=== PATIENT | female | born 1940 | race Caucasian/White ===

== ENCOUNTER → 2016-07-02 | Outpatient (CLI) | payer OTHER ==
[~2016-07-02] VITALS: Ht 170.2 cm; Wt 89.8 kg
[~2016-07-02] MED LIST: ASPI81TA83 PO; ATAM25TA2 PO; ATOR1TAB21 PO; BUPROPION PO; CARB1TAB16 PO; CLON0.5T PO; ELIQ5TAB PO; ERGO500014 PO; LEVO75TA2 PO; LEVO75TA4 PO; LEXA1TAB PO; LIDOCAINE 2% INJ 100 MG/5 ML SDV (FOR ANES.) As Ordered ONE; LIPI20TA PO; LISI10TA2 PO; Lisinopril/HCTZ PO; METF500T4 PO; NIZO2SHA EX; NS 1,000 ML IV ONE; OMEP40CA2 PO; PROPOFOL 200 MG/20 ML VIAL As Ordered ONE; VICO5TAB OR
--- NOTE | 2016-07-02 12:10 | ROOR ---
Patient Name: Osiris Austin Procedure Date: 07/02/2016 11:46 AM Date of : 1940 Age: 75 Room: [facility] Gender: Female Note Status: Finalized Procedure: Upper GI endoscopy + Biopsies Indications: Heartburn Providers: Collin Ch MD Referring MD: Alfa Maher MD Requesting Provider: Medicines: Monitored Anesthesia Care Complications: No immediate complications. Procedure: Pre-Anesthesia Assessment: - The heart rate, respiratory rate, oxygen saturations, blood pressure, adequacy of pulmonary ventilation, and response to care were monitored throughout the procedure. The Endoscope was introduced through the mouth, and advanced to the second part of duodenum. The upper GI endoscopy was accomplished without difficulty. The patient tolerated the procedure well. Findings: The Z-line was regular and was found 40 cm from the incisors. One non-bleeding cratered gastric ulcer was found at the incisura. Biopsies were taken with a cold forceps for histology. The exam was otherwise without abnormality. The exam of the duodenum was otherwise normal. Impression: - Z-line regular, 40 cm from the incisors. - Non-bleeding gastric ulcer. Biopsied. - The examination was otherwise normal. Recommendation: - Await pathology results. - Discharge patient to home. - Use Prilosec (omeprazole) 40 mg PO BID. - Use sucralfate tablets 1 gram PO QID. - Telephone GI clinic for pathology results in 1 week. - Check Portal Online for Path Results.([email or web address] - The findings and recommendations were discussed with the patient's family. Collin Ch MD Collin Ch MD 07/02/2016 12:09:54 PM This report has been signed electronically. Number of Addenda: 0 Note Initiated On: 07/02/2016 11:46 AM Estimated Blood Loss: Estimated blood loss: none.
--- NOTE | 2016-07-02 12:31 | ROOR ---
Patient Name: Osiris Austin Procedure Date: 07/02/2016 11:47 AM Date of : 1940 Age: 75 Room: [facility] Gender: Female Note Status: Finalized Procedure: Total Colonoscopy to Cecum + Cold Snare Polypectomy + Biopsy Polypectomy Indications: Screening in patient at increased risk: Colorectal cancer in father 60 or older Providers: Collin Ch MD Referring MD: Alfa Maher MD Requesting Provider: Medicines: Monitored Anesthesia Care Complications: No immediate complications. Procedure: Pre-Anesthesia Assessment: - The heart rate, respiratory rate, oxygen saturations, blood pressure, adequacy of pulmonary ventilation, and response to care were monitored throughout the procedure. The Colonoscope was introduced through the anus and advanced to the cecum, identified by appendiceal orifice and ileocecal valve. The colonoscopy was performed without difficulty. The patient tolerated the procedure well. The quality of the bowel preparation was excellent. Findings: The perianal and digital rectal examinations were normal. Non-bleeding internal hemorrhoids were found during retroflexion. The hemorrhoids were small and Grade I (internal hemorrhoids that do not prolapse). Scattered small-mouthed diverticula were found in the recto-sigmoid colon, sigmoid colon and descending colon. A small polyp was found in the mid ascending colon. The polyp was sessile. The polyp was removed with a jumbo cold forceps. Resection and retrieval were complete. A small polyp was found in the mid ascending colon. The polyp was sessile. The polyp was removed with a cold snare. Resection was complete, but the polyp tissue was not retrieved. The exam was otherwise without abnormality on direct and retroflexion views. Impression: - Non-bleeding internal hemorrhoids. - Diverticulosis in the recto-sigmoid colon, in the sigmoid colon and in the descending colon. - One small polyp in the mid ascending colon, removed with a jumbo cold forceps. Resected and retrieved. - One small polyp in the mid ascending colon, removed with a cold snare. Complete resection. Polyp tissue not retrieved. - The examination was otherwise normal on direct and retroflexion views. - The exam was otherwise normal to the cecum. Recommendation: - Patient has a contact number available for emergencies. The signs and symptoms of potential delayed complications were discussed with the patient. Return to normal activities tomorrow. Written discharge instructions were provided to the patient. - High fiber diet. - Discharge patient to home. - Await pathology results. - Telephone GI clinic for pathology results in 1 week. - Check Portal Online for Path Results.([email or web address]) - The findings and recommendations were discussed with the patient's family. Collin Ch MD Collin Ch MD 07/02/2016 12:31:18 PM This report has been signed electronically. Number of Addenda: 0 Note Initiated On: 07/02/2016 11:47 AM Estimated Blood Loss: Estimated blood loss: none.
[2016-07-02 12:50] VITALS: BP 153/72
== END | disposition home or self-care (01) ==
LOC: M OPP 11:16
PROVIDERS: ATTEND Internal Medicine Gastroenterology
DX: Z12.11 Encounter for screening for malignant neoplasm of colon (principal); D12.2 Benign neoplasm of ascending colon; K64.0 First degree hemorrhoids; K57.30 Diverticulosis of large intestine without perforation or abscess without bleeding; R12 Heartburn; K25.9 Gastric ulcer, unspecified as acute or chronic, without hemorrhage or perforation; I48.91 Unspecified atrial fibrillation; R07.89 Other chest pain; I10 Essential (primary) hypertension; E78.5 Hyperlipidemia, unspecified; R01.1 Cardiac murmur, unspecified; R00.2 Palpitations; I20.9 Angina pectoris, unspecified; E11.9 Type 2 diabetes mellitus without complications; E03.9 Hypothyroidism, unspecified; K44.9 Diaphragmatic hernia without obstruction or gangrene; K58.9 Irritable bowel syndrome, unspecified; M19.90 Unspecified osteoarthritis, unspecified site; M54.9 Dorsalgia, unspecified; F41.9 Anxiety disorder, unspecified; F32.9 Major depressive disorder, single episode, unspecified; G25.81 Restless legs syndrome; R06.02 Shortness of breath; Z87.891 Personal history of nicotine dependence; Z88.8 Allergy status to other drugs, medicaments and biological substances; Z79.84 Long term (current) use of oral hypoglycemic drugs; Z79.899 Other long term (current) drug therapy; Z80.0 Family history of malignant neoplasm of digestive organs; Z80.3 Family history of malignant neoplasm of breast

== ENCOUNTER → 2016-07-07 | Outpatient (CLI) | payer OTHER ==
[~2016-07-07] MED LIST changes: +GASTROGRAFIN SOLUTION 30ML (Q9963) As Ordered ONE; +ISOVUE-370 76% 100ML VIAL (Q9967) As Ordered ONE; -LIDOCAINE 2% INJ 100 MG/5 ML SDV (FOR ANES.) As Ordered ONE; -NS 1,000 ML IV ONE; -PROPOFOL 200 MG/20 ML VIAL As Ordered ONE
--- NOTE | 2016-07-07 16:18 | REP ---
Clinical: Gastric carcinoma. Technique: Axial contrast enhanced images from the lung bases to the pubic symphysis using oral and 100 ml Isovue 370 intravenous contrast material with precontrast and delayed images of the abdomen as well as coronal and sagittal re-formations. Comparison: 05/06/2005. Findings: Liver, spleen, pancreas, gallbladder, bilateral adrenal glands and kidneys are normal in all phases of enhancement. Clips in the epigastrium suggest prior gastric hernia repair. The enteric system including stomach, small and large bowel is otherwise unremarkable and without obvious acute process. Few scattered sigmoid diverticula are noted without acute diverticulitis. Pelvis demonstrates normal bladder and age-appropriate uterus/left adnexa. Right adnexal cyst measures 5.6 cm diameter. No ascites. No intraperitoneal or retroperitoneal adenopathy. No free air. Abdominal aorta and vasculature is normal. Surrounding musculoskeletal structures are without focal osseous abnormality and demonstrate degenerative changes primarily involving the lumbosacral spine. Lung bases demonstrate chronic-appearing changes including 7 mm nodule in the lateral left lower lobe which remain stable compared to 2005. Impression: 1. 5.6 cm right adnexal cyst requires followup. 2. Evidence for prior gastric hernia repair. 3. No further acute intra-abdominal or pelvic pathology is appreciated. Signed by Lukasz Rose MD 07/07/2016 04:09 P
== END ==
LOC: M RAD 13:49
PROVIDERS: ATTEND Internal Medicine Gastroenterology
DX: C16.5 Malignant neoplasm of lesser curvature of stomach, unspecified (principal); N85.8 Other specified noninflammatory disorders of uterus
CPT/HCPCS: 74178; Q9963; Q9967

== ENCOUNTER → 2016-08-27 | Outpatient (CLI) | payer OTHER ==
[~2016-08-27] MED LIST changes: -GASTROGRAFIN SOLUTION 30ML (Q9963) As Ordered ONE; -ISOVUE-370 76% 100ML VIAL (Q9967) As Ordered ONE
--- NOTE | 2016-08-28 04:17 | REP ---
Clinical: Right ovarian cyst on recent CT. Comparison: CT dated 07/07/2016 . Technique: Transabdominal pelvic ultrasound followed by transvaginal examination for better evaluation of the endometrium and adnexa with color Doppler evaluation of the ovaries. Findings: Bladder is unremarkable and measures 6.0 x 5.3 x 8.7 cm . Retroverted heterogeneous uterus measures 4.8 x 3.6 x 5.2 cm . The endometrial complex measures 7.1 mm thickness. No discrete uterine or endometrial abnormalities are appreciated. Right ovary measures 6.8 x 4.7 x 5.8 cm and includes 5.9 x 4.1 x 4.8 cm cyst similar to CT. Venous flow to the right ovary noted. Left ovary is not visualized. No pelvic fluid or adnexal mass lesion. Impression: 1. Retroverted heterogeneous uterus with possible adenomyosis. 2. 5.9 cm right ovarian cyst. Follow-up evaluation in 4-6 weeks may be warranted. Left ovary not visualized. No pelvic fluid or adnexal mass. Signed by Lukasz Rose MD 08/28/2016 04:08 A
== END ==
LOC: M RAD 09:24
PROVIDERS: ATTEND Family Medicine
DX: N83.201 Unspecified ovarian cyst, right side (principal); N85.4 Malposition of uterus

== ENCOUNTER → 2016-10-06 | Outpatient (CLI) | payer OTHER ==
[~2016-10-06] MED LIST changes: +GASTROGRAFIN SOLUTION 30ML (Q9963) As Ordered ONE; +ISOVUE-370 76% 100ML VIAL (Q9967) As Ordered ONE
--- NOTE | 2016-10-06 16:57 | REP ---
CT abdomen pelvis with IV and oral contrast: History: Pelvic mass. Intravenous contrast dose: 100 mL of Isovue 370. Comparison CT study: 07/12/2016. Findings: Preliminary digital layout technician radiograph is unremarkable. The lung bases are clear except for a linear area of fibrosis laterally. This is unchanged. There are multiple metallic densities along the undersurface of the left diaphragm medially suggesting previous diaphragmatic hernia repair. These are unchanged. The stomach is unremarkable. No adrenal lesion is seen. Kidneys enhance symmetrically are morphologically intact. Liver and spleen are normal in size homogeneous in texture. Gallbladder and pancreas are unremarkable. There is clark colonic diverticulosis. No CT evidence of diverticulitis is seen. No retroperitoneal mass or adenopathy is seen. There is a cystic lesion in the right ovary. On today's CT images this measures 5.9 cm anteroposterior x 4.2 cm medial to lateral. This is essentially unchanged from the prior CT study. No uterine or left adnexal abnormality is seen. The urinary bladder is largely empty but intact. No bony destructive lesion is seen. No abdominal wall defect is observed. Impression: 1. 5.9 cm cystic lesion in the right ovary essentially unchanged from the 07/07/[address] study. Ovarian neoplasm is not completely excluded. 2. Metallic densities along the undersurface of the left diaphragm suggesting previous diaphragmatic repair. 3. Otherwise unremarkable CT study abdomen and pelvis. Signed by Cliff Robledo MD 10/06/2016 05:13 P
== END ==
LOC: M RAD 14:42
PROVIDERS: ATTEND Surgery
DX: R19.00 Intra-abdominal and pelvic swelling, mass and lump, unspecified site (principal); C16.0 Malignant neoplasm of cardia; E11.9 Type 2 diabetes mellitus without complications; N83.201 Unspecified ovarian cyst, right side
CPT/HCPCS: 74177; Q9963; Q9967

== ENCOUNTER 2017-03-29 20:44 | Emergency (ER) | payer OTHER ==
[2017-03-29] MEDS: NS 1,000 ML IV (21:15)
[2017-03-29] MEDS: HumuLIN R (REGULAR) INSULIN (NovoLIN R) **100U/ML** PER UNIT IV ×2 (21:15→23:13)
[2017-03-29 21:28] LABS: ABG BASE EXCESS -1.2 (-2.0-2.0); ABG HCO3 22.9 MEQ/L (22.0-26.0); ABG O2 SATURATION 95.3 % (95.0-99.0); ABG PARTIAL PRESSURE CO2 36.6 mmHg (35.0-45.0); ABG PARTIAL PRESSURE O2 78.1 mmHg (75.0-100.0); ABG STANDARD HCO3 23.4 MEQ/L (22.0-26.0); ABG TOTAL CO2 24.1 MEQ/L (23.0-31.0); ABG pH (ARTERIAL) 7.415 UNITS (7.350-7.450)
[2017-03-29 21:49] LABS: BASO % 0.4 % (0.0-1.0); EOS # 0.1 10^3/uL (0.0-0.50); EOS % 1.8 % (0.0-3.0); IMMATURE GRANULOCYTE % 0.4 % (0-3.0); LYMPH # 1.6 10^3/uL (1.5-4.5); LYMPH % 29.9 % (24.0-44.0); MEAN CORPUSCULAR HEMOGLOBIN 27.4 pg (27.0-33.0); MEAN CORPUSCULAR HGB CONC 32.4 g/dl (32.0-36.5); MEAN CORPUSCULAR VOLUME 84.6 fl (80.0-96.0); MONO # 0.5 10^3/uL (0.0-0.8); MONO % 8.4 % (0.0-5.0); NEUTROPHILS # 3.2 10^3/uL (1.8-7.7); NEUTROPHILS % 59.1 % (36.0-66.0); PLATELET COUNT, AUTOMATED 225 10^3/uL (150-450); RED BLOOD COUNT 4.02 10^6/uL (4.00-5.40); RED CELL DISTRIBUTION WIDTH 14.6 % (11.5-14.5); WHITE BLOOD COUNT 5.5 10^3/uL (4.0-10.0)
[2017-03-29 21:57] LABS: OSMOLALITY SERUM 306 MOSM/KG (280-301)
[2017-03-29 22:02] LABS: ALBUMIN 3.8 GM/DL (3.2-5.2); ALBUMIN/GLOBULIN RATIO 1.15 (1.00-1.93); ALKALINE PHOSPHATASE 146 U/L (45-117); ALT/SGPT 21 U/L (12-78); ANION GAP 10 MEQ/L (8-16); AST/SGOT 14 U/L (7-37); BILIRUBIN,DIRECT 0.2 MG/DL (0.0-0.2); BILIRUBIN,TOTAL 0.6 MG/DL (0.2-1.0); BLOOD UREA NITROGEN 30 MG/DL (7-18); CALCIUM LEVEL 9.1 MG/DL (8.8-10.2); CARBON DIOXIDE LEVEL 28 MEQ/L (21-32); CHLORIDE LEVEL 82 MEQ/L (98-107); CREATININE FOR GFR 1.87 MG/DL (0.55-1.30); GLOMERULAR FILTRATION RATE 27.7 (>39); POTASSIUM SERUM 4.4 MEQ/L (3.5-5.1); SODIUM LEVEL 120 MEQ/L (136-145); TOTAL PROTEIN 7.1 GM/DL (6.4-8.2)
[2017-03-29 22:05] LABS: GLUCOSE, FASTING 883 MG/DL (70-100)
[2017-03-29 22:13] LABS: ACETONE/KETONE 3.24 MG/DL (<2.81)
[2017-03-29] MEDS: metFORMIN 850 MG TAB PO (22:30)
[2017-03-29 23:02] LABS: RBC, URINE AUTO RFX 1 /HPF (0-3); SQUAM EPITHELIAL CELL UR AURFX 0 /HPF (0-6); WBC, URINE AUTO RFX 1 /HPF (0-3)
[2017-03-29 23:15] LABS: ESTIMATED AVERAGE GLUCOSE 413 MG/DL (60-110); HEMOGLOBIN A1c > 16.0 %
[2017-03-29 23:58] LABS: BEDSIDE GLUCOSE 531 MG/DL (83-110)
[2017-03-30 00:10] LABS: KETONE, URINE AUTO RFX NEGATIVE (NEGATIVE); LEUKOCYTE ESTERASE UR AUTO RFX NEGATIVE (NEGATIVE); NITRITE, URINE AUTO RFX NEGATIVE (NEGATIVE); SPECIFIC GRAVITY UR AUTO RFX 1.021 (1.002-1.035)
[2017-03-30] MEDS: HumuLIN R (REGULAR) INSULIN (NovoLIN R) **100U/ML** PER UNIT IV ×2 (00:15→01:45)
[2017-03-30 01:29] LABS: BEDSIDE GLUCOSE 385 MG/DL (83-110)
[2017-03-30 01:58] LABS: BEDSIDE GLUCOSE 293 MG/DL (83-110)
[2017-03-30 07:42] LABS: BEDSIDE GLUCOSE > 600 MG/DL (83-110)
[2017-03-30 07:42] LABS: BEDSIDE GLUCOSE > 600 MG/DL (83-110)
[2017-03-30 07:42] LABS: BEDSIDE GLUCOSE > 600 MG/DL (83-110)
== END 2017-03-30 02:52 | disposition home or self-care (01) ==
LOC: M ED 03-30 02:52
DX: E11.65 Type 2 diabetes mellitus with hyperglycemia (principal); I10 Essential (primary) hypertension; E07.9 Disorder of thyroid, unspecified; E78.00 Pure hypercholesterolemia, unspecified; Z79.899 Other long term (current) drug therapy; Z79.890 Hormone replacement therapy; Z79.84 Long term (current) use of oral hypoglycemic drugs; Z88.8 Allergy status to other drugs, medicaments and biological substances; Z87.891 Personal history of nicotine dependence
CPT/HCPCS: 83930

== ENCOUNTER 2017-06-05 19:37 | Inpatient (IN) | payer OTHER, MEDICARE ==
[2017-06-05] MEDS: PANTOPRAZOLE 40MG INJ (PROTONIX) (C9113) IV (20:30)
[2017-06-05] MEDS: NS 1,000 ML IV (20:30)
[2017-06-05] MEDS: PANTOPRAZOLE SODIUM 40 MG in D5W 50 ML IV (20:30)
[2017-06-05 20:59] LABS: BASO % 0.1 % (0.0-1.0); EOS # 0.2 10^3/uL (0.0-0.50); EOS % 2.2 % (0.0-3.0); HEMATOCRIT 14.6 % (36.0-47.0); IMMATURE GRANULOCYTE % 0.4 % (0-3.0); LYMPH # 1.6 10^3/uL (1.5-4.5); MEAN CORPUSCULAR HEMOGLOBIN 23.6 pg (27.0-33.0); MEAN CORPUSCULAR HGB CONC 28.8 g/dl (32.0-36.5); MONO # 0.6 10^3/uL (0.0-0.8); MONO % 8.2 % (0.0-5.0); NEUTROPHILS # 4.6 10^3/uL (1.8-7.7); NEUTROPHILS % 66.1 % (36.0-66.0); PLATELET COUNT, AUTOMATED 223 10^3/uL (150-450); RED BLOOD COUNT 1.78 10^6/uL (4.00-5.40); RED CELL DISTRIBUTION WIDTH 16.8 % (11.5-14.5)
[2017-06-05 21:04] LABS: HEMOGLOBIN 4.2 g/dl (12.0-15.5)
[2017-06-05 21:20] LABS: ANION GAP 8 MEQ/L (8-16); BLOOD UREA NITROGEN 22 MG/DL (7-18); CARBON DIOXIDE LEVEL 25 MEQ/L (21-32); CHLORIDE LEVEL 109 MEQ/L (98-107); CREATININE FOR GFR 1.32 MG/DL (0.55-1.30); GLOMERULAR FILTRATION RATE 41.4 (>39); GLUCOSE, FASTING 108 MG/DL (70-100); POTASSIUM SERUM 3.5 MEQ/L (3.5-5.1); SODIUM LEVEL 142 MEQ/L (136-145)
[2017-06-05 21:29] LABS: INR 1.05; PROTHROMBIN TIME 13.8 SECONDS (12.4-14.5)
[2017-06-05] MEDS ORDERED: GLUCAGON FOR INJ 1 MG VIAL (J1610) SC (21:45)
[2017-06-05] MEDS ORDERED: ONDANSETRON 4MG/2ML VIAL (J2405) IV (21:45)
[2017-06-05] MEDS ORDERED: GLUCOSE 4 GM CHEW TABLET PO (21:45)
[2017-06-05] MEDS ORDERED: DEXTROSE 50% 50 ML SYRINGE IV (21:45)
[2017-06-06] MEDS: HumaLOG INSULIN (NovoLOG) PER UNIT SC ×5 (01:01→21:00)
[2017-06-06] MEDS: PANTOPRAZOLE SODIUM 40 MG in D5W 50 ML IV ×6 (02:03→21:54)
[2017-06-06] MEDS: LEVOTHYROXINE 75MCG TABLET (0.075MG) PO ×2 (04:11→21:07)
[2017-06-06 05:38] LABS: IMMEDIATE SPIN CROSSMATCH 1 4
[2017-06-06] MEDS: SUCRALFATE 1 GM TAB PO ×4 (06:37→21:07)
[2017-06-06] MEDS: FUROSEMIDE 40 MG/4 ML VIAL (J1940) IV (06:47)
[2017-06-06 06:50] LABS: BEDSIDE GLUCOSE 106 MG/DL (83-110)
[2017-06-06 09:59] LABS: HEMATOCRIT 30.7 % (36.0-47.0); MEAN CORPUSCULAR HEMOGLOBIN 26.7 pg (27.0-33.0); MEAN CORPUSCULAR HGB CONC 31.9 g/dl (32.0-36.5); MEAN CORPUSCULAR VOLUME 83.7 fl (80.0-96.0); PLATELET COUNT, AUTOMATED 197 10^3/uL (150-450); RED BLOOD COUNT 3.67 10^6/uL (4.00-5.40); RED CELL DISTRIBUTION WIDTH 15.8 % (11.5-14.5); WHITE BLOOD COUNT 7.6 10^3/uL (4.0-10.0)
[2017-06-06 10:04] LABS: HEMOGLOBIN 9.8 g/dl (12.0-15.5)
[2017-06-06 13:29] LABS: BEDSIDE GLUCOSE 112 MG/DL (83-110)
[2017-06-06 15:20] LABS: HEMATOCRIT 31.3 % (36.0-47.0); HEMOGLOBIN 10.1 g/dl (12.0-15.5); MEAN CORPUSCULAR HEMOGLOBIN 26.4 pg (27.0-33.0); MEAN CORPUSCULAR HGB CONC 32.3 g/dl (32.0-36.5); MEAN CORPUSCULAR VOLUME 81.7 fl (80.0-96.0); PLATELET COUNT, AUTOMATED 192 10^3/uL (150-450); RED BLOOD COUNT 3.83 10^6/uL (4.00-5.40); RED CELL DISTRIBUTION WIDTH 15.8 % (11.5-14.5); WHITE BLOOD COUNT 7.9 10^3/uL (4.0-10.0)
[2017-06-06] MEDS: ACETAMINOPHEN TAB 650MG DOSE (2X325MG) PO (16:26)
[2017-06-06 17:19] LABS: BEDSIDE GLUCOSE 145 MG/DL (83-110)
[2017-06-06 20:16] LABS: BEDSIDE GLUCOSE 101 MG/DL (83-110)
[2017-06-06 20:37] LABS: HEMATOCRIT 29.1 % (36.0-47.0); HEMOGLOBIN 9.4 g/dl (12.0-15.5); MEAN CORPUSCULAR HEMOGLOBIN 26.1 pg (27.0-33.0); MEAN CORPUSCULAR HGB CONC 32.3 g/dl (32.0-36.5); MEAN CORPUSCULAR VOLUME 80.8 fl (80.0-96.0); PLATELET COUNT, AUTOMATED 185 10^3/uL (150-450); RED CELL DISTRIBUTION WIDTH 15.8 % (11.5-14.5); WHITE BLOOD COUNT 7.6 10^3/uL (4.0-10.0)
[2017-06-07 04:03] LABS: HEMATOCRIT 29.4 % (36.0-47.0); HEMOGLOBIN 9.3 g/dl (12.0-15.5); MEAN CORPUSCULAR HEMOGLOBIN 26.1 pg (27.0-33.0); MEAN CORPUSCULAR HGB CONC 31.6 g/dl (32.0-36.5); MEAN CORPUSCULAR VOLUME 82.6 fl (80.0-96.0); PLATELET COUNT, AUTOMATED 198 10^3/uL (150-450); RED BLOOD COUNT 3.56 10^6/uL (4.00-5.40); RED CELL DISTRIBUTION WIDTH 15.9 % (11.5-14.5); WHITE BLOOD COUNT 7.1 10^3/uL (4.0-10.0)
[2017-06-07 04:22] LABS: BLOOD UREA NITROGEN 11 MG/DL (7-18); CALCIUM LEVEL 8.1 MG/DL (8.8-10.2); CARBON DIOXIDE LEVEL 27 MEQ/L (21-32); CHLORIDE LEVEL 111 MEQ/L (98-107); GLOMERULAR FILTRATION RATE 42.2 (>39); GLUCOSE, FASTING 100 MG/DL (70-100)
[2017-06-07] MEDS: PANTOPRAZOLE SODIUM 40 MG in D5W 50 ML IV ×2 (04:23→09:42)
[2017-06-07 04:32] LABS: ANION GAP 9 MEQ/L (8-16); SODIUM LEVEL 147 MEQ/L (136-145)
[2017-06-07 04:35] LABS: POTASSIUM SERUM 2.7 MEQ/L (3.5-5.1)
[2017-06-07] MEDS: POTASSIUM CHLORIDE 10 MEQ SR TABLET PO ×2 (05:01→09:41)
[2017-06-07] MEDS: cloNIDine 0.1 MG TAB PO (05:01)
[2017-06-07] MEDS: HumaLOG INSULIN (NovoLOG) PER UNIT SC ×2 (07:21→12:00)
[2017-06-07] MEDS ORDERED: POTASSIUM CHLORIDE 10% LIQ 20 MEQ/15 ML UDC PO (09:00)
[2017-06-07 09:17] LABS: HEMATOCRIT 29.3 % (36.0-47.0); HEMOGLOBIN 9.4 g/dl (12.0-15.5); MEAN CORPUSCULAR HEMOGLOBIN 26.6 pg (27.0-33.0); MEAN CORPUSCULAR HGB CONC 32.1 g/dl (32.0-36.5); MEAN CORPUSCULAR VOLUME 82.8 fl (80.0-96.0); PLATELET COUNT, AUTOMATED 175 10^3/uL (150-450); RED BLOOD COUNT 3.54 10^6/uL (4.00-5.40); RED CELL DISTRIBUTION WIDTH 15.9 % (11.5-14.5); WHITE BLOOD COUNT 7.9 10^3/uL (4.0-10.0)
[2017-06-07] MEDS: SUCRALFATE 1 GM TAB PO ×2 (09:41→12:44)
[2017-06-07 12:06] LABS: BEDSIDE GLUCOSE 150 MG/DL (83-110)
[2017-06-07 12:48] LABS: MAGNESIUM LEVEL 1.6 MG/DL (1.8-2.4)
[2017-06-07 12:48] LABS: POTASSIUM SERUM 3.6 MEQ/L (3.5-5.1)
[2017-06-07] MEDS: MAGNESIUM OXIDE 400 MG TAB (MAG-OX) PO (13:30)
== END 2017-06-07 14:00 | disposition home or self-care (01) | DRG 375 ==
LOC: M PCU 06-06 00:05 → M ED 19:37 → M ED INP 21:32
PROC: 30233N1 Transfusion of Nonautologous Red Blood Cells into Peripheral Vein, Percutaneous Approach (ICD-10-PCS; principal; 2017-06-05)
DX: C16.9 Malignant neoplasm of stomach, unspecified (principal); K92.2 Gastrointestinal hemorrhage, unspecified; D62 Acute posthemorrhagic anemia; Z66 Do not resuscitate; E11.22 Type 2 diabetes mellitus with diabetic chronic kidney disease; D63.0 Anemia in neoplastic disease; N18.3 Chronic kidney disease, stage 3 (moderate); E03.9 Hypothyroidism, unspecified; G25.81 Restless legs syndrome; F41.9 Anxiety disorder, unspecified; F32.9 Major depressive disorder, single episode, unspecified; Z88.6 Allergy status to analgesic agent; Z88.8 Allergy status to other drugs, medicaments and biological substances; Z79.899 Other long term (current) drug therapy; Z79.4 Long term (current) use of insulin; Z87.891 Personal history of nicotine dependence

== ENCOUNTER → 2017-07-01 | Outpatient (CLI) | payer OTHER | LOC: M PLARAD 12:13 | DX: C16.9 Malignant neoplasm of stomach, unspecified (principal) ==

== ENCOUNTER 2017-07-03 17:32 | Inpatient (IN) | payer OTHER ==
[2017-07-03 18:38] LABS: ALBUMIN 2.8 GM/DL (3.2-5.2); ALBUMIN/GLOBULIN RATIO 0.85 (1.00-1.93); ALKALINE PHOSPHATASE 133 U/L (45-117); ALT/SGPT 18 U/L (12-78); ANION GAP 9 MEQ/L (8-16); AST/SGOT 16 U/L (7-37); BILIRUBIN,TOTAL 0.2 MG/DL (0.2-1.0); BLOOD UREA NITROGEN 17 MG/DL (7-18); CALCIUM LEVEL 8.1 MG/DL (8.8-10.2); CARBON DIOXIDE LEVEL 24 MEQ/L (21-32); CHLORIDE LEVEL 109 MEQ/L (98-107); CREATININE FOR GFR 1.28 MG/DL (0.55-1.30); FERRITIN 2 NG/ML (8-252); GLOMERULAR FILTRATION RATE 42.9 (>39); GLUCOSE, FASTING 144 MG/DL (70-100); IRON (FE) 15 UG/DL (50-170); MAGNESIUM LEVEL 1.7 MG/DL (1.8-2.4); PERCENT SATURATION 3.9 % (13.2-45.0); POTASSIUM SERUM 3.5 MEQ/L (3.5-5.1); SODIUM LEVEL 142 MEQ/L (136-145); TOTAL IRON BINDING CAPACITY 383 UG/DL (250-450); TOTAL PROTEIN 6.1 GM/DL (6.4-8.2)
[2017-07-03] MEDS: PANTOPRAZOLE 40MG INJ (PROTONIX) (C9113) IV (18:41)
[2017-07-03 18:43] LABS: BASO % 0.3 % (0.0-1.0); EOS # 0.1 10^3/uL (0.0-0.50); EOS % 1.8 % (0.0-3.0); HEMATOCRIT 14.4 % (36.0-47.0); LYMPH # 1.5 10^3/uL (1.5-4.5); LYMPH % 24.5 % (24.0-44.0); MEAN CORPUSCULAR HEMOGLOBIN 22.5 pg (27.0-33.0); MEAN CORPUSCULAR HGB CONC 28.5 g/dl (32.0-36.5); MEAN CORPUSCULAR VOLUME 79.1 fl (80.0-96.0); MONO # 0.5 10^3/uL (0.0-0.8); MONO % 7.9 % (0.0-5.0); NEUTROPHILS # 3.9 10^3/uL (1.8-7.7); NEUTROPHILS % 64.5 % (36.0-66.0); PLATELET COUNT, AUTOMATED 357 10^3/uL (150-450); RED BLOOD COUNT 1.82 10^6/uL (4.00-5.40); RED CELL DISTRIBUTION WIDTH 20.6 % (11.5-14.5); RETIC HEMOGLOBIN EQUIVALENT 14.2 pg (24-36); RETICULOCYTE # 36.2 10^9/L (17-77)
[2017-07-03 18:48] LABS: HEMOGLOBIN 4.1 g/dl (12.0-15.5); POSITIVE MORPH POS FLAG
[2017-07-03 18:49] LABS: INR 0.94; PROTHROMBIN TIME 12.7 SECONDS (12.4-14.5)
[2017-07-03 18:50] LABS: PARTIAL THROMBOPLASTIN TIME 33.9 SECONDS (26.8-37.9)
[2017-07-03 18:52] LABS: ADD MORPHOLOGY? YES
[2017-07-03] MEDS: POTASSIUM CHLORIDE 10 MEQ SR TABLET PO (19:15)
[2017-07-03] MEDS: MAG SULF 1GM/100ML (MAG RUN) 1 GM in APPROPRIATE DILUENT 1 EA IV (19:15)
[2017-07-03 19:24] LABS: ANISOCYTOSIS 4+; PLATELET ESTIMATE NORMAL (NORMAL)
[2017-07-03 19:25] LABS: HYPOCHROMASIA 3+; MICROCYTOSIS 2+; POLYCHROMASIA 1+
[2017-07-03 19:27] LABS: SCHISTOCYTES 1+
[2017-07-03] MEDS ORDERED: GLUCAGON FOR INJ 1 MG VIAL (J1610) SC (20:15)
[2017-07-03] MEDS ORDERED: ONDANSETRON 4MG/2ML VIAL (J2405) IV (20:15)
[2017-07-03] MEDS ORDERED: GLUCOSE 4 GM CHEW TABLET PO (20:15)
[2017-07-03] MEDS ORDERED: DEXTROSE 50% 50 ML SYRINGE IV (20:15)
[2017-07-03 20:51] LABS: CPK CREATINE PHOSPHOKINASE 115 U/L (26-192); TROPONIN I < 0.02 NG/ML (< 0.10)
[2017-07-03 20:52] LABS: CK-MB VALUE MASS 2.7 NG/ML (<3.6); MB/CK RELATIVE INDEX 2.34 (< OR =4)
[2017-07-03 20:57] LABS: NT-PRO BNP 470 PG/ML (<450)
[2017-07-03] MEDS: HumaLOG INSULIN (NovoLOG) PER UNIT SC (21:00)
[2017-07-03] MEDS ORDERED: POTASSIUM CHLORIDE 10 MEQ SR TABLET PO (21:00)
[2017-07-03] MEDS ORDERED: FUROSEMIDE 20 MG/2 ML VIAL (J1940) IV (21:00)
[2017-07-03] MEDS: SUCRALFATE SUSP 1GM/10ML UD PO (21:00)
[2017-07-03 21:32] LABS: LACTIC ACID SEPSIS PROTOCOL 1.4 MMOL/L (0.4-2.0)
[2017-07-03] MEDS: PANTOPRAZOLE SODIUM 40 MG in D5W 50 ML IV (22:01)
[2017-07-04] MEDS: SENOKOT S TAB PO ×3 (00:40→20:30)
[2017-07-04] MEDS: PANTOPRAZOLE SODIUM 40 MG in D5W 50 ML IV ×5 (01:33→22:09)
[2017-07-04 02:11] LABS: HEMATOCRIT 13.5 % (36.0-47.0)
[2017-07-04 02:15] LABS: HEMOGLOBIN 3.8 g/dl (12.0-15.5)
[2017-07-04 02:36] LABS: CK-MB VALUE MASS 2.6 NG/ML (<3.6); CPK CREATINE PHOSPHOKINASE 97 U/L (26-192); MB/CK RELATIVE INDEX 2.68 (< OR =4); TROPONIN I < 0.02 NG/ML (< 0.10)
[2017-07-04] MEDS: LEVOTHYROXINE 88MCG TABLET (0.088 MG) PO (06:06)
[2017-07-04] MEDS: ALPRAZolam 0.25 MG TAB PO ×2 (06:18→16:55)
[2017-07-04] MEDS ORDERED: PANTOPRAZOLE SODIUM 40 MG in D5W 50 ML IV (06:45)
[2017-07-04] MEDS ORDERED: PANTOPRAZOLE 40MG INJ (PROTONIX) (C9113) IV (06:45)
[2017-07-04] MEDS: HumaLOG INSULIN (NovoLOG) PER UNIT SC ×4 (07:30→20:30)
[2017-07-04 07:40] LABS: BEDSIDE GLUCOSE 125 MG/DL (83-110)
[2017-07-04 08:25] LABS: IMMEDIATE SPIN CROSSMATCH 1 4
[2017-07-04 08:48] LABS: BASO % 0.3 % (0.0-1.0); EOS # 0.1 10^3/uL (0.0-0.50); EOS % 2.1 % (0.0-3.0); HEMATOCRIT 21.1 % (36.0-47.0); IMMATURE GRANULOCYTE % 0.5 % (0-3.0); LYMPH # 1.1 10^3/uL (1.5-4.5); LYMPH % 17.1 % (24.0-44.0); MEAN CORPUSCULAR HEMOGLOBIN 24.5 pg (27.0-33.0); MEAN CORPUSCULAR HGB CONC 30.3 g/dl (32.0-36.5); MEAN CORPUSCULAR VOLUME 80.8 fl (80.0-96.0); MONO # 0.5 10^3/uL (0.0-0.8); MONO % 7.9 % (0.0-5.0); NEUTROPHILS # 4.5 10^3/uL (1.8-7.7); NEUTROPHILS % 72.1 % (36.0-66.0); PLATELET COUNT, AUTOMATED 296 10^3/uL (150-450); RED BLOOD COUNT 2.61 10^6/uL (4.00-5.40); RED CELL DISTRIBUTION WIDTH 18.6 % (11.5-14.5); WHITE BLOOD COUNT 6.2 10^3/uL (4.0-10.0)
[2017-07-04 08:56] LABS: HEMOGLOBIN 6.4 g/dl (12.0-15.5)
[2017-07-04] MEDS: ESCITALOPRAM OXALATE 10 MG TAB (LEXAPRO) PO (08:59)
[2017-07-04] MEDS: FUROSEMIDE 20 MG/2 ML VIAL (J1940) IV (08:59)
[2017-07-04] MEDS: SUCRALFATE SUSP 1GM/10ML UD PO ×4 (08:59→20:30)
[2017-07-04 09:00] LABS: ANION GAP 5 MEQ/L (8-16); BLOOD UREA NITROGEN 12 MG/DL (7-18); CALCIUM LEVEL 7.8 MG/DL (8.8-10.2); CARBON DIOXIDE LEVEL 25 MEQ/L (21-32); CHLORIDE LEVEL 112 MEQ/L (98-107); GLOMERULAR FILTRATION RATE 51.1 (>39); GLUCOSE, FASTING 109 MG/DL (70-100); POTASSIUM SERUM 3.9 MEQ/L (3.5-5.1); SODIUM LEVEL 142 MEQ/L (136-145)
[2017-07-04 12:39] LABS: HEMOGLOBIN 8.7 g/dl (12.0-15.5)
[2017-07-04 12:44] LABS: BEDSIDE GLUCOSE 132 MG/DL (83-110)
[2017-07-04] MEDS: ACETAMINOPHEN TAB 650MG DOSE (2X325MG) PO ×2 (14:58→20:30)
[2017-07-04 15:56] LABS: HEMATOCRIT 27.8 % (36.0-47.0); HEMOGLOBIN 8.9 g/dl (12.0-15.5)
[2017-07-04 17:10] LABS: BEDSIDE GLUCOSE 139 MG/DL (83-110)
[2017-07-04 20:02] LABS: BEDSIDE GLUCOSE 123 MG/DL (83-110)
[2017-07-04 23:37] LABS: HEMATOCRIT 25.7 % (36.0-47.0); HEMOGLOBIN 8.3 g/dl (12.0-15.5)
[2017-07-05] MEDS: PANTOPRAZOLE SODIUM 40 MG in D5W 50 ML IV ×2 (02:30→06:44)
[2017-07-05 06:06] LABS: BASO % 0.5 % (0.0-1.0); EOS # 0.1 10^3/uL (0.0-0.50); EOS % 2.3 % (0.0-3.0); HEMATOCRIT 26.8 % (36.0-47.0); HEMOGLOBIN 8.5 g/dl (12.0-15.5); IMMATURE GRANULOCYTE % 0.3 % (0-3.0); LYMPH # 1.1 10^3/uL (1.5-4.5); LYMPH % 18.6 % (24.0-44.0); MEAN CORPUSCULAR HEMOGLOBIN 25.7 pg (27.0-33.0); MEAN CORPUSCULAR HGB CONC 31.7 g/dl (32.0-36.5); MONO # 0.5 10^3/uL (0.0-0.8); MONO % 8.5 % (0.0-5.0); NEUTROPHILS # 4.2 10^3/uL (1.8-7.7); NEUTROPHILS % 69.8 % (36.0-66.0); PLATELET COUNT, AUTOMATED 251 10^3/uL (150-450); RED BLOOD COUNT 3.31 10^6/uL (4.00-5.40); RED CELL DISTRIBUTION WIDTH 17.2 % (11.5-14.5)
[2017-07-05 06:32] LABS: ANION GAP 7 MEQ/L (8-16); BLOOD UREA NITROGEN 14 MG/DL (7-18); CALCIUM LEVEL 8.3 MG/DL (8.8-10.2); CARBON DIOXIDE LEVEL 28 MEQ/L (21-32); CHLORIDE LEVEL 109 MEQ/L (98-107); CREATININE FOR GFR 1.25 MG/DL (0.55-1.30); GLOMERULAR FILTRATION RATE 44.1 (>39); GLUCOSE, FASTING 118 MG/DL (70-100); POTASSIUM SERUM 3.6 MEQ/L (3.5-5.1); SODIUM LEVEL 144 MEQ/L (136-145)
[2017-07-05] MEDS: LEVOTHYROXINE 88MCG TABLET (0.088 MG) PO (06:43)
[2017-07-05] MEDS: SUCRALFATE SUSP 1GM/10ML UD PO ×2 (06:46→11:36)
[2017-07-05] MEDS: ESCITALOPRAM OXALATE 10 MG TAB (LEXAPRO) PO (08:03)
[2017-07-05] MEDS: SENOKOT S TAB PO (08:04)
[2017-07-05] MEDS: HumaLOG INSULIN (NovoLOG) PER UNIT SC (08:05)
[2017-07-05 09:54] LABS: IMMEDIATE SPIN CROSSMATCH 1 2
[2017-07-05] MEDS ORDERED: FUROSEMIDE 20 MG/2 ML VIAL (J1940) IV ×2 (10:00)
[2017-07-05] MEDS: amLODIPine 10 MG TAB PO (11:36)
[2017-07-05] MEDS: ALPRAZolam 0.25 MG TAB PO (11:40)
[2017-07-05 12:48] LABS: HEMOGLOBIN 10.4 g/dl (12.0-15.5)
[2017-07-05] MEDS: FUROSEMIDE 20 MG TAB PO (12:53)
[2017-07-06 08:48] LABS: FOLATE 9.8 NG/ML; VITAMIN B12 LEVEL 280 PG/ML
[2017-07-06] MEDS ORDERED: LEVOTHYROXINE 88MCG TABLET (0.088 MG) PO (21:00)
== END 2017-07-05 12:57 | disposition home or self-care (01) | DRG 375 ==
LOC: M MS5PR 07-04 20:39 → M ED 17:32 → M ED INP 19:32 → M PCU 23:12
PROVIDERS: Pediatrics
PROC: 30233N1 Transfusion of Nonautologous Red Blood Cells into Peripheral Vein, Percutaneous Approach (ICD-10-PCS; principal; 2017-07-04)
DX: C16.9 Malignant neoplasm of stomach, unspecified (principal); D62 Acute posthemorrhagic anemia; K92.2 Gastrointestinal hemorrhage, unspecified; Z66 Do not resuscitate; F32.9 Major depressive disorder, single episode, unspecified; F41.9 Anxiety disorder, unspecified; E03.9 Hypothyroidism, unspecified; E11.9 Type 2 diabetes mellitus without complications; I48.91 Unspecified atrial fibrillation; N18.3 Chronic kidney disease, stage 3 (moderate)

== ENCOUNTER 2017-07-22 19:58 | Inpatient (IN) | payer OTHER ==
[2017-07-22] MEDS: LEVEMIR (INSULIN DETEMIR) 1 UNITS/0.01ML SC (16:00)
[2017-07-22] MEDS: PANTOPRAZOLE 40MG TAB (PROTONIX) PO (21:00)
[2017-07-22] MEDS: ONDANSETRON 4MG/2ML VIAL (J2405) IV (21:45)
[2017-07-22 23:09] LABS: BASO % 0.1 % (0.0-1.0); EOS # 0.1 10^3/uL (0.0-0.50); EOS % 0.6 % (0.0-3.0); HEMATOCRIT 12.8 % (36.0-47.0); LYMPH # 1.4 10^3/uL (1.5-4.5); LYMPH % 18.3 % (24.0-44.0); MEAN CORPUSCULAR HEMOGLOBIN 23.4 pg (27.0-33.0); MEAN CORPUSCULAR HGB CONC 28.9 g/dl (32.0-36.5); MONO # 0.6 10^3/uL (0.0-0.8); MONO % 8.2 % (0.0-5.0); NEUTROPHILS # 5.5 10^3/uL (1.8-7.7); NEUTROPHILS % 71.8 % (36.0-66.0); PLATELET COUNT, AUTOMATED 486 10^3/uL (150-450); RED BLOOD COUNT 1.58 10^6/uL (4.00-5.40); RED CELL DISTRIBUTION WIDTH 18.7 % (11.5-14.5); WHITE BLOOD COUNT 7.7 10^3/uL (4.0-10.0)
[2017-07-22 23:16] LABS: HEMOGLOBIN 3.7 g/dl (12.0-15.5)
[2017-07-22] MEDS: NS 1,000 ML IV (23:19)
[2017-07-22] MEDS: PANTOPRAZOLE 40MG INJ (PROTONIX) (C9113) IV (23:19)
[2017-07-22 23:23] LABS: INR 1.07; PROTHROMBIN TIME 14.1 SECONDS (12.4-14.5)
[2017-07-22 23:32] LABS: ALBUMIN 2.5 GM/DL (3.2-5.2); ALBUMIN/GLOBULIN RATIO 0.96 (1.00-1.93); ALKALINE PHOSPHATASE 140 U/L (45-117); ALT/SGPT 19 U/L (12-78); ANION GAP 6 MEQ/L (8-16); AST/SGOT 17 U/L (7-37); BILIRUBIN,DIRECT < 0.1 MG/DL (0.0-0.2); BILIRUBIN,TOTAL 0.2 MG/DL (0.2-1.0); BLOOD UREA NITROGEN 24 MG/DL (7-18); CALCIUM LEVEL 7.9 MG/DL (8.8-10.2); CARBON DIOXIDE LEVEL 26 MEQ/L (21-32); CHLORIDE LEVEL 109 MEQ/L (98-107); CREATININE FOR GFR 1.05 MG/DL (0.55-1.30); GLUCOSE, FASTING 118 MG/DL (70-100); LIPASE 323 U/L (73-393); POTASSIUM SERUM 3.8 MEQ/L (3.5-5.1); SODIUM LEVEL 141 MEQ/L (136-145); TOTAL PROTEIN 5.1 GM/DL (6.4-8.2)
[2017-07-23 00:17] LABS: KETONE, URINE AUTO RFX NEGATIVE (NEGATIVE); LEUKOCYTE ESTERASE UR AUTO RFX NEGATIVE (NEGATIVE); MUCUS, URINE RFX SMALL (NEGATIVE); NITRITE, URINE AUTO RFX NEGATIVE (NEGATIVE); RBC, URINE AUTO RFX 1 /HPF (0-3); SPECIFIC GRAVITY UR AUTO RFX 1.012 (1.002-1.035); SQUAM EPITHELIAL CELL UR AURFX 0 /HPF (0-6); WBC, URINE AUTO RFX 2 /HPF (0-3)
[2017-07-23] MEDS: NS 1,000 ML IV ×2 (00:57→18:19)
[2017-07-23] MEDS ORDERED: ACETAMINOPHEN TAB 650MG DOSE (2X325MG) PO (01:00)
[2017-07-23] MEDS ORDERED: GLUCAGON FOR INJ 1 MG VIAL (J1610) SC (01:00)
[2017-07-23] MEDS ORDERED: GLUCOSE 4 GM CHEW TABLET PO (01:00)
[2017-07-23] MEDS ORDERED: DEXTROSE 50% 50 ML SYRINGE IV (01:00)
[2017-07-23] MEDS: LEVOTHYROXINE 88MCG TABLET (0.088 MG) PO (06:00)
[2017-07-23 06:32] LABS: BASO % 0.1 % (0.0-1.0); EOS # 0.1 10^3/uL (0.0-0.50); EOS % 1.1 % (0.0-3.0); HEMATOCRIT 12.7 % (36.0-47.0); IMMATURE GRANULOCYTE % 0.7 % (0-3.0); LYMPH # 1.5 10^3/uL (1.5-4.5); LYMPH % 21.6 % (24.0-44.0); MEAN CORPUSCULAR HEMOGLOBIN 23.7 pg (27.0-33.0); MEAN CORPUSCULAR HGB CONC 29.1 g/dl (32.0-36.5); MEAN CORPUSCULAR VOLUME 81.4 fl (80.0-96.0); MONO # 0.6 10^3/uL (0.0-0.8); MONO % 9.2 % (0.0-5.0); NEUTROPHILS # 4.7 10^3/uL (1.8-7.7); NEUTROPHILS % 67.3 % (36.0-66.0); PLATELET COUNT, AUTOMATED 512 10^3/uL (150-450); RED BLOOD COUNT 1.56 10^6/uL (4.00-5.40)
[2017-07-23 06:34] LABS: HEMOGLOBIN 3.7 g/dl (12.0-15.5)
[2017-07-23 06:56] LABS: ANION GAP 4 MEQ/L (8-16); BLOOD UREA NITROGEN 21 MG/DL (7-18); CALCIUM LEVEL 7.7 MG/DL (8.8-10.2); CARBON DIOXIDE LEVEL 27 MEQ/L (21-32); CHLORIDE LEVEL 111 MEQ/L (98-107); CREATININE FOR GFR 1.05 MG/DL (0.55-1.30); GLUCOSE, FASTING 115 MG/DL (70-100); SODIUM LEVEL 142 MEQ/L (136-145)
[2017-07-23] MEDS: HumaLOG INSULIN (NovoLOG) PER UNIT SC ×4 (08:09→21:00)
[2017-07-23] MEDS: SUCRALFATE 1 GM TAB PO ×4 (08:09→21:09)
[2017-07-23] MEDS: PANTOPRAZOLE 40MG TAB (PROTONIX) PO (08:09)
[2017-07-23] MEDS: ACETAMINOPHEN TAB 650MG DOSE (2X325MG) PO (08:09)
[2017-07-23] MEDS: ESCITALOPRAM OXALATE 10 MG TAB (LEXAPRO) PO (08:09)
[2017-07-23] MEDS: clonazePAM 0.5 MG TAB PO ×2 (10:51→22:41)
[2017-07-23 11:57] LABS: BEDSIDE GLUCOSE 134 MG/DL (83-110)
[2017-07-23 14:41] LABS: IMMEDIATE SPIN CROSSMATCH 1 4
[2017-07-23 16:05] LABS: BEDSIDE GLUCOSE 125 MG/DL (83-110)
[2017-07-23] MEDS: LEVEMIR (INSULIN DETEMIR) 1 UNITS/0.01ML SC (16:07)
[2017-07-23 17:29] LABS: BEDSIDE GLUCOSE 111 MG/DL (83-110)
[2017-07-23 18:41] LABS: HEMATOCRIT 28.4 % (36.0-47.0)
[2017-07-23] MEDS ORDERED: SLF 3 ML SYR IV (18:45)
[2017-07-23 21:01] LABS: BEDSIDE GLUCOSE 122 MG/DL (83-110)
[2017-07-23] MEDS: PANTOPRAZOLE 40MG INJ (PROTONIX) (C9113) IV (21:09)
[2017-07-23] MEDS: SLF 3 ML SYR IV (21:14)
[2017-07-23] MEDS ORDERED: clonazePAM 0.5 MG TAB PO (22:36)
[2017-07-24] MEDS: SLF 3 ML SYR IV ×2 (05:52→14:00)
[2017-07-24] MEDS: LEVOTHYROXINE 88MCG TABLET (0.088 MG) PO (05:52)
[2017-07-24 06:30] LABS: HEMATOCRIT 25.5 % (36.0-47.0); HEMOGLOBIN 8.2 g/dl (12.0-15.5); MEAN CORPUSCULAR HEMOGLOBIN 26.6 pg (27.0-33.0); MEAN CORPUSCULAR HGB CONC 32.2 g/dl (32.0-36.5); MEAN CORPUSCULAR VOLUME 82.8 fl (80.0-96.0); RED BLOOD COUNT 3.08 10^6/uL (4.00-5.40); RED CELL DISTRIBUTION WIDTH 17.2 % (11.5-14.5); WHITE BLOOD COUNT 7.3 10^3/uL (4.0-10.0)
[2017-07-24 06:34] LABS: PLATELET COUNT, AUTOMATED 404 10^3/uL (150-450)
[2017-07-24] MEDS: HumaLOG INSULIN (NovoLOG) PER UNIT SC ×2 (07:30→12:22)
[2017-07-24 08:06] LABS: BEDSIDE GLUCOSE 157 MG/DL (83-110)
[2017-07-24] MEDS: PANTOPRAZOLE 40MG INJ (PROTONIX) (C9113) IV (09:07)
[2017-07-24] MEDS: ESCITALOPRAM OXALATE 10 MG TAB (LEXAPRO) PO (09:07)
[2017-07-24] MEDS: SUCRALFATE 1 GM TAB PO ×2 (09:07→12:21)
[2017-07-24 09:11] LABS: ALBUMIN 2.4 GM/DL (3.2-5.2); ALBUMIN/GLOBULIN RATIO 1.09 (1.00-1.93); ALKALINE PHOSPHATASE 127 U/L (45-117); ALT/SGPT 16 U/L (12-78); ANION GAP 6 MEQ/L (8-16); AST/SGOT 15 U/L (7-37); BILIRUBIN,TOTAL 0.7 MG/DL (0.2-1.0); BLOOD UREA NITROGEN 20 MG/DL (7-18); CARBON DIOXIDE LEVEL 28 MEQ/L (21-32); CHLORIDE LEVEL 110 MEQ/L (98-107); CREATININE FOR GFR 1.13 MG/DL (0.55-1.30); GLOMERULAR FILTRATION RATE 49.6 (>39); GLUCOSE, FASTING 99 MG/DL (70-100); MAGNESIUM LEVEL 1.7 MG/DL (1.8-2.4); SODIUM LEVEL 144 MEQ/L (136-145); TOTAL PROTEIN 4.6 GM/DL (6.4-8.2)
[2017-07-24] MEDS: MAG SULF 1GM/100ML (MAG RUN) 1 GM in APPROPRIATE DILUENT 1 EA IV (09:47)
[2017-07-24 11:40] LABS: BEDSIDE GLUCOSE 125 MG/DL (83-110)
[2017-07-24 12:07] LABS: HEMATOCRIT 27.4 % (36.0-47.0); HEMOGLOBIN 8.8 g/dl (12.0-15.5)
== END 2017-07-24 14:55 | disposition home or self-care (01) | DRG 375 ==
LOC: M ED INP 07-23 00:57 → M PCU 07-23 16:59 → M ED 19:58
PROVIDERS: Pediatrics
PROC: 30233N1 Transfusion of Nonautologous Red Blood Cells into Peripheral Vein, Percutaneous Approach (ICD-10-PCS; principal; 2017-07-23)
DX: C16.9 Malignant neoplasm of stomach, unspecified (principal); K92.2 Gastrointestinal hemorrhage, unspecified; D62 Acute posthemorrhagic anemia; E11.9 Type 2 diabetes mellitus without complications; E03.9 Hypothyroidism, unspecified; F32.9 Major depressive disorder, single episode, unspecified; F41.9 Anxiety disorder, unspecified; D63.0 Anemia in neoplastic disease; G25.81 Restless legs syndrome; I10 Essential (primary) hypertension; Z79.4 Long term (current) use of insulin; Z88.6 Allergy status to analgesic agent; Z88.8 Allergy status to other drugs, medicaments and biological substances; Z79.899 Other long term (current) drug therapy; Z87.891 Personal history of nicotine dependence; Z98.51 Tubal ligation status; I48.0 Paroxysmal atrial fibrillation; Z90.721 Acquired absence of ovaries, unilateral

== ENCOUNTER → 2017-07-29 | Outpatient (CLI) | payer OTHER | LOC: M ONCR 13:04 | DX: C16.3 Malignant neoplasm of pyloric antrum (principal); Z87.891 Personal history of nicotine dependence | CPT/HCPCS: G0463 ==

== ENCOUNTER → 2017-08-03 | Outpatient (REF) | payer OTHER ==
[2017-08-04 09:17] LABS: IMMEDIATE SPIN CROSSMATCH 1 3
== END ==
LOC: M LAB REF 12:49
DX: D64.9 Anemia, unspecified (principal); K92.2 Gastrointestinal hemorrhage, unspecified
CPT/HCPCS: 86900

== ENCOUNTER 2017-08-04 08:54 | Outpatient (CLI) | payer OTHER ==
[2017-08-04] MEDS: diphenhydrAMINE 25 MG CAP PO (09:19)
[2017-08-04] MEDS: ACETAMINOPHEN TAB 650MG DOSE (2X325MG) PO (09:20)
== END 2017-08-04 16:30 | disposition home or self-care (01) ==
LOC: M INFU 08:54
DX: D64.9 Anemia, unspecified (principal); K92.2 Gastrointestinal hemorrhage, unspecified; K21.9 Gastro-esophageal reflux disease without esophagitis; E11.9 Type 2 diabetes mellitus without complications; M12.9 Arthropathy, unspecified; E03.9 Hypothyroidism, unspecified; Z79.4 Long term (current) use of insulin; Z79.899 Other long term (current) drug therapy; Z88.8 Allergy status to other drugs, medicaments and biological substances
CPT/HCPCS: 36430

== ENCOUNTER 2017-08-06 14:01 | Outpatient (RCR) | payer OTHER | END 2017-08-15 | LOC: M ONCR 14:01 | DX: C16.9 Malignant neoplasm of stomach, unspecified (principal) | CPT/HCPCS: 77300 ==

== ENCOUNTER 2017-08-10 13:53 | Inpatient (IN) | payer OTHER, MEDICAID ==
[2017-08-10 17:01] LABS: ALBUMIN 2.1 GM/DL (3.2-5.2); ALBUMIN/GLOBULIN RATIO 1.05 (1.00-1.93); ALKALINE PHOSPHATASE 110 U/L (45-117); ALT/SGPT 24 U/L (12-78); AMYLASE 62 U/L (25-115); ANION GAP 15 MEQ/L (8-16); AST/SGOT 24 U/L (7-37); BILIRUBIN,DIRECT 0.2 MG/DL (0.0-0.2); BILIRUBIN,TOTAL 0.3 MG/DL (0.2-1.0); BLOOD UREA NITROGEN 54 MG/DL (7-18); CALCIUM LEVEL 7.7 MG/DL (8.8-10.2); CARBON DIOXIDE LEVEL 20 MEQ/L (21-32); CHLORIDE LEVEL 107 MEQ/L (98-107); CREATININE FOR GFR 1.63 MG/DL (0.55-1.30); GLOMERULAR FILTRATION RATE 32.4 (>39); GLUCOSE, FASTING 167 MG/DL (70-100); LIPASE 226 U/L (73-393); POTASSIUM SERUM 3.6 MEQ/L (3.5-5.1); SODIUM LEVEL 142 MEQ/L (136-145); TOTAL PROTEIN 4.1 GM/DL (6.4-8.2)
[2017-08-10 17:20] LABS: KETONE, URINE AUTO RFX NEGATIVE (NEGATIVE); LEUKOCYTE ESTERASE UR AUTO RFX NEGATIVE (NEGATIVE); NITRITE, URINE AUTO RFX NEGATIVE (NEGATIVE); RBC, URINE AUTO RFX 0 /HPF (0-3); SPECIFIC GRAVITY UR AUTO RFX 1.015 (1.002-1.035); SQUAM EPITHELIAL CELL UR AURFX 0 /HPF (0-6); WBC, URINE AUTO RFX 0 /HPF (0-3)
[2017-08-10 17:21] LABS: BASO % 0.1 % (0.0-1.0); EOS % 0.1 % (0.0-3.0); HEMATOCRIT 11.3 % (36.0-47.0); IMMATURE GRANULOCYTE % 3.2 % (0-3.0); LYMPH # 2.4 10^3/uL (1.5-4.5); LYMPH % 12.8 % (24.0-44.0); MEAN CORPUSCULAR HGB CONC 29.2 g/dl (32.0-36.5); MEAN CORPUSCULAR VOLUME 95.8 fl (80.0-96.0); MONO # 1.1 10^3/uL (0.0-0.8); MONO % 6.1 % (0.0-5.0); NEUTROPHILS # 14.3 10^3/uL (1.8-7.7); NEUTROPHILS % 77.7 % (36.0-66.0); PLATELET COUNT, AUTOMATED 322 10^3/uL (150-450); RED BLOOD COUNT 1.18 10^6/uL (4.00-5.40); RED CELL DISTRIBUTION WIDTH 22.3 % (11.5-14.5); WHITE BLOOD COUNT 18.4 10^3/uL (4.0-10.0)
[2017-08-10 17:27] LABS: HEMOGLOBIN 3.3 g/dl (12.0-15.5)
[2017-08-10] MEDS: NS 1,000 ML IV ×2 (17:27→21:45)
[2017-08-10] MEDS: PANTOPRAZOLE 40MG INJ (PROTONIX) (C9113) IV (17:30)
[2017-08-10 17:38] LABS: INR 1.28; PROTHROMBIN TIME 16.3 SECONDS (12.4-14.5)
[2017-08-10 17:39] LABS: PARTIAL THROMBOPLASTIN TIME 33.1 SECONDS (26.8-37.9)
[2017-08-10 17:48] LABS: CPK CREATINE PHOSPHOKINASE 103 U/L (26-192)
[2017-08-10] MEDS: GASTROGRAFIN SOLUTION 30ML PO ×2 (17:58→18:30)
[2017-08-10 18:06] LABS: MB/CK RELATIVE INDEX 3.88 (< OR =4); TROPONIN I < 0.02 NG/ML (< 0.10)
[2017-08-10] MEDS ORDERED: GLUCOSE 4 GM CHEW TABLET PO (21:45)
[2017-08-10] MEDS ORDERED: GLUCAGON FOR INJ 1 MG VIAL (J1610) SC (21:45)
[2017-08-10] MEDS ORDERED: DEXTROSE 50% 50 ML SYRINGE IV (21:45)
[2017-08-10] MEDS ORDERED: ONDANSETRON 4MG/2ML VIAL (J2405) IV (21:45)
[2017-08-10 22:35] LABS: LACTIC ACID SEPSIS PROTOCOL 7.1 MMOL/L (0.4-2.0)
[2017-08-10] MEDS: NS 500 ML IV (23:15)
[2017-08-11] MEDS: HumaLOG INSULIN (NovoLOG) PER UNIT SC ×4 (06:00→17:10)
[2017-08-11] MEDS: LEVOTHYROXINE 88MCG TABLET (0.088 MG) PO (06:00)
[2017-08-11 06:19] LABS: BEDSIDE GLUCOSE 148 MG/DL (83-110)
[2017-08-11 08:57] LABS: BASO % 0.3 % (0.0-1.0); EOS % 0.1 % (0.0-3.0); HEMATOCRIT 21.8 % (36.0-47.0); IMMATURE GRANULOCYTE % 3.8 % (0-3.0); LYMPH # 1.7 10^3/uL (1.5-4.5); LYMPH % 11.3 % (24.0-44.0); MEAN CORPUSCULAR HEMOGLOBIN 29.7 pg (27.0-33.0); MEAN CORPUSCULAR HGB CONC 33.5 g/dl (32.0-36.5); MEAN CORPUSCULAR VOLUME 88.6 fl (80.0-96.0); MONO # 1.2 10^3/uL (0.0-0.8); MONO % 7.7 % (0.0-5.0); NEUTROPHILS # 11.6 10^3/uL (1.8-7.7); NEUTROPHILS % 76.8 % (36.0-66.0); PLATELET COUNT, AUTOMATED 256 10^3/uL (150-450); RED BLOOD COUNT 2.46 10^6/uL (4.00-5.40); RED CELL DISTRIBUTION WIDTH 16.4 % (11.5-14.5); WHITE BLOOD COUNT 15.1 10^3/uL (4.0-10.0)
[2017-08-11] MEDS ORDERED: PANTOPRAZOLE 40MG INJ (PROTONIX) (C9113) IV (09:00)
[2017-08-11 09:02] LABS: HEMOGLOBIN 7.3 g/dl (12.0-15.5)
[2017-08-11] MEDS: ESCITALOPRAM OXALATE 10 MG TAB (LEXAPRO) PO (09:10)
[2017-08-11] MEDS: PANTOPRAZOLE 40MG TAB (PROTONIX) PO ×2 (09:10→21:10)
[2017-08-11 09:17] LABS: ANION GAP 9 MEQ/L (8-16); BLOOD UREA NITROGEN 52 MG/DL (7-18); CALCIUM LEVEL 7.1 MG/DL (8.8-10.2); CARBON DIOXIDE LEVEL 24 MEQ/L (21-32); CHLORIDE LEVEL 111 MEQ/L (98-107); CREATININE FOR GFR 1.46 MG/DL (0.55-1.30); GLOMERULAR FILTRATION RATE 36.8 (>39); GLUCOSE, FASTING 136 MG/DL (70-100); POTASSIUM SERUM 3.7 MEQ/L (3.5-5.1); SODIUM LEVEL 144 MEQ/L (136-145)
[2017-08-11 12:12] LABS: BEDSIDE GLUCOSE 135 MG/DL (83-110)
[2017-08-11] MEDS: NS 1,000 ML IV ×2 (13:55→21:11)
[2017-08-11] MEDS: ACETAMINOPHEN TAB 650MG DOSE (2X325MG) PO (15:39)
[2017-08-11 15:58] LABS: HEMATOCRIT 25.9 % (36.0-47.0); HEMOGLOBIN 8.8 g/dl (12.0-15.5)
[2017-08-11 17:10] LABS: BEDSIDE GLUCOSE 118 MG/DL (83-110)
[2017-08-11] MEDS: clonazePAM 0.5 MG TAB PO (21:10)
[2017-08-11] MEDS: SUCRALFATE 1 GM TAB PO (21:10)
[2017-08-11 23:58] LABS: HEMATOCRIT 23.8 % (36.0-47.0)
[2017-08-12 01:32] LABS: BEDSIDE GLUCOSE 133 MG/DL (83-110)
[2017-08-12] MEDS: NS 1,000 ML IV (03:45)
[2017-08-12 05:15] LABS: BASO % 0.3 % (0.0-1.0); EOS # 0.1 10^3/uL (0.0-0.50); EOS % 1.1 % (0.0-3.0); HEMATOCRIT 22.7 % (36.0-47.0); HEMOGLOBIN 7.6 g/dl (12.0-15.5); IMMATURE GRANULOCYTE % 4.5 % (0-3.0); LYMPH # 1.3 10^3/uL (1.5-4.5); LYMPH % 12.4 % (24.0-44.0); MEAN CORPUSCULAR HGB CONC 33.5 g/dl (32.0-36.5); MEAN CORPUSCULAR VOLUME 89.7 fl (80.0-96.0); MONO # 0.7 10^3/uL (0.0-0.8); MONO % 6.8 % (0.0-5.0); NEUTROPHILS # 7.9 10^3/uL (1.8-7.7); NEUTROPHILS % 74.9 % (36.0-66.0); PLATELET COUNT, AUTOMATED 214 10^3/uL (150-450); RED BLOOD COUNT 2.53 10^6/uL (4.00-5.40); RED CELL DISTRIBUTION WIDTH 16.8 % (11.5-14.5); WHITE BLOOD COUNT 10.6 10^3/uL (4.0-10.0)
[2017-08-12 05:38] LABS: ANION GAP 9 MEQ/L (8-16); BLOOD UREA NITROGEN 35 MG/DL (7-18); CALCIUM LEVEL 6.5 MG/DL (8.8-10.2); CARBON DIOXIDE LEVEL 23 MEQ/L (21-32); CHLORIDE LEVEL 115 MEQ/L (98-107); CREATININE FOR GFR 1.07 MG/DL (0.55-1.30); GLOMERULAR FILTRATION RATE 52.7 (>39); GLUCOSE, FASTING 107 MG/DL (70-100); POTASSIUM SERUM 3.3 MEQ/L (3.5-5.1); SODIUM LEVEL 147 MEQ/L (136-145)
[2017-08-12] MEDS: HumaLOG INSULIN (NovoLOG) PER UNIT SC ×5 (06:00→20:29)
[2017-08-12] MEDS: LEVOTHYROXINE 88MCG TABLET (0.088 MG) PO (06:36)
[2017-08-12] MEDS: ESCITALOPRAM OXALATE 10 MG TAB (LEXAPRO) PO (08:27)
[2017-08-12] MEDS: PANTOPRAZOLE 40MG TAB (PROTONIX) PO ×2 (08:27→20:29)
[2017-08-12] MEDS: SUCRALFATE 1 GM TAB PO ×4 (08:27→20:29)
[2017-08-12] MEDS: CALCIUM GLUCONATE 1,000 MG in D5W MINI-BAG PLUS 100 ML IV (08:27)
[2017-08-12] MEDS: POTASSIUM CHLORIDE 10 MEQ SR TABLET PO (08:29)
[2017-08-12 10:49] LABS: IMMEDIATE SPIN CROSSMATCH 1 6
[2017-08-12 12:15] LABS: BEDSIDE GLUCOSE 150 MG/DL (83-110)
[2017-08-12 16:27] LABS: HEMATOCRIT 26.9 % (36.0-47.0)
[2017-08-12 17:16] LABS: BEDSIDE GLUCOSE 98 MG/DL (83-110)
[2017-08-12 20:28] LABS: BEDSIDE GLUCOSE 123 MG/DL (83-110)
[2017-08-12] MEDS: clonazePAM 0.5 MG TAB PO (20:31)
[2017-08-13 05:01] LABS: BASO % 0.5 % (0.0-1.0); EOS # 0.2 10^3/uL (0.0-0.50); EOS % 2.2 % (0.0-3.0); HEMATOCRIT 26.3 % (36.0-47.0); HEMOGLOBIN 8.8 g/dl (12.0-15.5); IMMATURE GRANULOCYTE % 2.7 % (0-3.0); LYMPH # 1.4 10^3/uL (1.5-4.5); LYMPH % 17.9 % (24.0-44.0); MEAN CORPUSCULAR HEMOGLOBIN 29.7 pg (27.0-33.0); MEAN CORPUSCULAR HGB CONC 33.5 g/dl (32.0-36.5); MEAN CORPUSCULAR VOLUME 88.9 fl (80.0-96.0); MONO # 0.7 10^3/uL (0.0-0.8); MONO % 8.8 % (0.0-5.0); NEUTROPHILS # 5.3 10^3/uL (1.8-7.7); NEUTROPHILS % 67.9 % (36.0-66.0); PLATELET COUNT, AUTOMATED 113 10^3/uL (150-450); RED BLOOD COUNT 2.96 10^6/uL (4.00-5.40); RED CELL DISTRIBUTION WIDTH 16.1 % (11.5-14.5); WHITE BLOOD COUNT 7.8 10^3/uL (4.0-10.0)
[2017-08-13 05:15] LABS: ANION GAP 6 MEQ/L (8-16); BLOOD UREA NITROGEN 21 MG/DL (7-18); CALCIUM LEVEL 6.8 MG/DL (8.8-10.2); CARBON DIOXIDE LEVEL 22 MEQ/L (21-32); CHLORIDE LEVEL 115 MEQ/L (98-107); GLOMERULAR FILTRATION RATE 56.9 (>39); GLUCOSE, FASTING 97 MG/DL (70-100); POTASSIUM SERUM 3.8 MEQ/L (3.5-5.1); SODIUM LEVEL 143 MEQ/L (136-145)
[2017-08-13] MEDS: LEVOTHYROXINE 88MCG TABLET (0.088 MG) PO (06:41)
[2017-08-13] MEDS: HumaLOG INSULIN (NovoLOG) PER UNIT SC ×2 (07:30→12:07)
[2017-08-13] MEDS: ESCITALOPRAM OXALATE 10 MG TAB (LEXAPRO) PO (08:32)
[2017-08-13] MEDS: SUCRALFATE 1 GM TAB PO ×2 (08:32→12:07)
[2017-08-13] MEDS: PANTOPRAZOLE 40MG TAB (PROTONIX) PO (08:32)
[2017-08-13] MEDS: CALCIUM GLUCONATE 1,000 MG in D5W MINI-BAG PLUS 100 ML IV (08:44)
[2017-08-13 11:54] LABS: BEDSIDE GLUCOSE 128 MG/DL (83-110)
[2017-08-13] MEDS: clonazePAM 0.5 MG TAB PO (13:00)
== END 2017-08-13 13:27 | disposition home health service (06) | DRG 375 ==
LOC: M ED 13:53 → M ED INP 21:48 → M ICU 22:54
PROC: 30233N1 Transfusion of Nonautologous Red Blood Cells into Peripheral Vein, Percutaneous Approach (ICD-10-PCS; principal; 2017-08-11)
DX: C26.9 Malignant neoplasm of ill-defined sites within the digestive system (principal); N17.9 Acute kidney failure, unspecified; D62 Acute posthemorrhagic anemia; E11.9 Type 2 diabetes mellitus without complications; F41.9 Anxiety disorder, unspecified; E03.9 Hypothyroidism, unspecified; E83.51 Hypocalcemia; F32.9 Major depressive disorder, single episode, unspecified; Z79.899 Other long term (current) drug therapy; Z88.6 Allergy status to analgesic agent; Z88.8 Allergy status to other drugs, medicaments and biological substances; E78.00 Pure hypercholesterolemia, unspecified; Z79.4 Long term (current) use of insulin

== ENCOUNTER 2017-08-17 10:31 | Outpatient (RCR) | payer OTHER, MEDICAID | END 2017-09-15 | LOC: M ONCR 10:31 | DX: C16.9 Malignant neoplasm of stomach, unspecified (principal) | CPT/HCPCS: 77300 ==

== ENCOUNTER 2017-08-17 16:09 | Outpatient (CLI) | payer OTHER, MEDICAID ==
[2017-08-18] MEDS: diphenhydrAMINE 25 MG CAP PO (12:00)
[2017-08-18] MEDS: ACETAMINOPHEN TAB 650MG DOSE (2X325MG) PO (12:00)
[2017-08-18 12:33] LABS: IMMEDIATE SPIN CROSSMATCH 1 2
[2017-08-18 12:54] LABS: BEDSIDE GLUCOSE 111 MG/DL (83-110)
== END 2017-08-18 18:05 | disposition home or self-care (01) ==
LOC: M OPCLI5PR 16:09 → M OPCLI4PV 08-18 11:05 → M MS5PR 16:14 → M MSPAV 08-18 11:08 → M OPCLI5PR 16:40 → M OPCLI4PV 08-18 18:05 → M MS5PR 16:40 → M OPCLI5PR 16:14
DX: D64.9 Anemia, unspecified (principal); Z79.899 Other long term (current) drug therapy; Z79.4 Long term (current) use of insulin; Z88.8 Allergy status to other drugs, medicaments and biological substances
CPT/HCPCS: 36430

== ENCOUNTER → 2017-08-17 | Outpatient (REF) | payer OTHER, MEDICAID ==
[2017-08-17 17:24] LABS: INR 0.92; PROTHROMBIN TIME 12.4 SECONDS (12.1-14.4)
[2017-08-17 17:25] LABS: PARTIAL THROMBOPLASTIN TIME 29.7 SECONDS (25.4-37.6)
== END ==
LOC: M LAB REF 16:31
DX: C16.9 Malignant neoplasm of stomach, unspecified (principal); Z79.01 Long term (current) use of anticoagulants
CPT/HCPCS: 85610

== ENCOUNTER → 2017-08-24 | Outpatient (REF) | payer OTHER, MEDICAID ==
[2017-08-24 14:15] LABS: FERRITIN 44 NG/ML (8-252); IRON (FE) 30 UG/DL (50-170); PERCENT SATURATION 10.3 % (13.2-45.0); TOTAL IRON BINDING CAPACITY 291 UG/DL (250-450)
[2017-08-25 10:09] LABS: IMMEDIATE SPIN CROSSMATCH 1 2
== END ==
LOC: M LAB REF 13:15
DX: C16.9 Malignant neoplasm of stomach, unspecified (principal)
CPT/HCPCS: 83550

== ENCOUNTER 2017-08-25 07:04 | Outpatient (CLI) | payer OTHER, MEDICAID ==
[2017-08-25] MEDS: ACETAMINOPHEN TAB 650MG DOSE (2X325MG) PO (07:26)
[2017-08-25] MEDS: diphenhydrAMINE 25 MG CAP PO (07:26)
== END 2017-08-25 12:45 | disposition home or self-care (01) ==
LOC: M INFU 07:04
DX: D64.9 Anemia, unspecified (principal); Z88.8 Allergy status to other drugs, medicaments and biological substances; Z79.4 Long term (current) use of insulin; Z79.899 Other long term (current) drug therapy
CPT/HCPCS: 36430

== ENCOUNTER → 2017-08-31 | Outpatient (REF) | payer OTHER, MEDICAID ==
[2017-08-31 14:22] LABS: FERRITIN 30 NG/ML (8-252); IRON (FE) 39 UG/DL (50-170); PERCENT SATURATION 14.1 % (13.2-45.0); TOTAL IRON BINDING CAPACITY 277 UG/DL (250-450)
== END ==
LOC: M LAB REF 13:43
DX: C16.9 Malignant neoplasm of stomach, unspecified (principal)
CPT/HCPCS: 83550

== ENCOUNTER → 2017-09-01 | Outpatient (CLI) | payer OTHER, MEDICAID ==
[~2017-09-01] MED LIST changes: -ASPI81TA83 PO; -ATAM25TA2 PO; -ATOR1TAB21 PO; -BUPROPION PO; -CARB1TAB16 PO; -CLON0.5T PO; -ELIQ5TAB PO; -ERGO500014 PO; -GASTROGRAFIN SOLUTION 30ML (Q9963) As Ordered ONE; -ISOVUE-370 76% 100ML VIAL (Q9967) As Ordered ONE; -LEVO75TA2 PO; -LEVO75TA4 PO; -LEXA1TAB PO; +LIDOCAINE 2% MDV 20 ML VIAL As Ordered; -LIPI20TA PO; -LISI10TA2 PO; -Lisinopril/HCTZ PO; -METF500T4 PO; -NIZO2SHA EX; -OMEP40CA2 PO; -VICO5TAB OR; +ceFAZolin 1GM INJ (J0690 PER 500MG) As Ordered
== END | disposition home or self-care (01) ==
LOC: M IRPRO 11:13
DX: C16.9 Malignant neoplasm of stomach, unspecified (principal)
CPT/HCPCS: 36561

== ENCOUNTER → 2017-09-07 | Outpatient (REF) | payer OTHER, MEDICAID ==
[2017-09-07 14:01] LABS: APPEARANCE, URINE CLOUDY (CLEAR); BACTERIA, URINE AUTO 1+ (NEGATIVE); BILIRUBIN, URINE AUTO 1+ (NEGATIVE); BLOOD, URINE BLOOD NEGATIVE (NEGATIVE); COLOR, URINE YELLOW (YELLOW); GLUCOSE, URINE (UA) AUTO NEGATIVE (NEGATIVE); KETONE, URINE AUTO NEGATIVE (NEGATIVE); LEUKOCYTE ESTERASE, URINE AUTO 2+ (NEGATIVE); MUCUS, URINE SMALL (NEGATIVE); NITRITE, URINE AUTO NEGATIVE (NEGATIVE); PROTEIN, URINE AUTO 2+ mg/dL (NEGATIVE); RBC, URINE AUTO 11 /HPF (0-3); SPECIFIC GRAVITY URINE AUTO 1.027 (1.002-1.035); SQUAMOUS EPITHELIAL CELL UR AU 3 /HPF (0-6); WBC, URINE AUTO TNTC /HPF (0-3)
[2017-09-07 14:14] LABS: FERRITIN 24 NG/ML (8-252); IRON (FE) 38 UG/DL (50-170); PERCENT SATURATION 15.8 % (13.2-45.0); TOTAL IRON BINDING CAPACITY 241 UG/DL (250-450)
== END ==
LOC: M LAB REF 13:44
DX: C16.9 Malignant neoplasm of stomach, unspecified (principal); Z79.899 Other long term (current) drug therapy
CPT/HCPCS: 83550

== ENCOUNTER 2017-09-16 11:01 | Outpatient (RCR) | payer OTHER, MEDICAID | END 2017-10-16 | LOC: M ONCR 11:01 | DX: C16.9 Malignant neoplasm of stomach, unspecified (principal) | CPT/HCPCS: 77412 ==

== ENCOUNTER → 2017-10-13 | Outpatient (CLI) | payer OTHER, MEDICAID | LOC: M PLARAD 08:30 | DX: C16.3 Malignant neoplasm of pyloric antrum (principal) | CPT/HCPCS: 78815 ==

== ENCOUNTER → 2017-11-11 | Outpatient (CLI) | payer OTHER, MEDICAID | LOC: M ONCR 11:10 | DX: C16.9 Malignant neoplasm of stomach, unspecified (principal) | CPT/HCPCS: G0463 ==

== ENCOUNTER → 2018-02-02 | Outpatient (REF) | payer OTHER ==
[~2018-02-02] MED LIST changes: +ASPI81TA83 PO; +ATAM25TA2 PO; +ATOR1TAB21 PO; +BUPROPION PO; +CARB1TAB16 PO; +CLON0.5T PO; +CLON0.5T8 PO; +ELIQ5TAB PO; +ERGO500014 PO; +ESCI10TA2; +ESCI10TA2 PO; +FERR1TAB8; +FERR1TAB8 PO; +LEVE1INJ5 SC; +LEVO75TA2 PO; +LEVO75TA4 PO; +LEVO88TA3 PO; +LEXA1TAB PO; -LIDOCAINE 2% MDV 20 ML VIAL As Ordered; +LIPI20TA PO; +LISI10TA2 PO; +Lisinopril/HCTZ PO; +MAGN400C PO; +METF500T13 PO; +METF500T4 PO; +NIZO2SHA EX; +OMEP40CA2 PO; +PANT40TA3 PO; +PATIENT COMMENTS; +PROT1TAB2 PO; +ROLLMIS2 XX; +ROPI0.253 PO; +SUCR1SS PO; +SUCR1TAB56 PO; +VICO5TAB OR; -ceFAZolin 1GM INJ (J0690 PER 500MG) As Ordered
[2018-02-02 13:43] LABS: BASO % 0.6 % (0.0-1.0); EOS # 0.1 10^3/uL (0.0-0.50); EOS % 2.4 % (0.0-3.0); HEMATOCRIT 36.7 % (36.0-47.0); HEMOGLOBIN 11.6 g/dl (12.0-15.5); LYMPH # 0.9 10^3/uL (1.5-4.5); LYMPH % 17.4 % (24.0-44.0); MEAN CORPUSCULAR HGB CONC 31.6 g/dl (32.0-36.5); MEAN CORPUSCULAR VOLUME 88.4 fl (80.0-96.0); MONO # 0.4 10^3/uL (0.0-0.8); MONO % 7.1 % (0.0-5.0); NEUTROPHILS # 3.9 10^3/uL (1.8-7.7); NEUTROPHILS % 72.1 % (36.0-66.0); PLATELET COUNT, AUTOMATED 191 10^3/uL (150-450); RED BLOOD COUNT 4.15 10^6/uL (4.00-5.40); WHITE BLOOD COUNT 5.4 10^3/uL (4.0-10.0)
[2018-02-02 14:16] LABS: PERCENT SATURATION 21.4 % (13.2-45.0)
== END ==
LOC: M LABDRWAD 12:32
PROVIDERS: ATTEND Internal Medicine Hematology & Oncology
DX: D50.9 Iron deficiency anemia, unspecified (principal)

== ENCOUNTER → 2018-03-19 | Outpatient (REF) | payer OTHER ==
[2018-03-19 21:00] LABS: BASO % 0.3 % (0.0-1.0); EOS # 0.1 10^3/uL (0.0-0.50); EOS % 3.1 % (0.0-3.0); HEMATOCRIT 36.7 % (36.0-47.0); HEMOGLOBIN 12.1 g/dl (12.0-15.5); MEAN CORPUSCULAR HEMOGLOBIN 29.8 pg (27.0-33.0); MEAN CORPUSCULAR VOLUME 90.4 fl (80.0-96.0); MONO # 0.4 10^3/uL (0.0-0.8); MONO % 10.5 % (0.0-5.0); NEUTROPHILS % 57.8 % (36.0-66.0); PLATELET COUNT, AUTOMATED 190 10^3/uL (150-450); RED BLOOD COUNT 4.06 10^6/uL (4.00-5.40); WHITE BLOOD COUNT 3.5 10^3/uL (4.0-10.0)
[2018-03-19 21:06] LABS: PERCENT SATURATION 25.8 % (13.2-45.0)
== END ==
LOC: M LABDRWAD 12:35
PROVIDERS: ATTEND Internal Medicine Hematology & Oncology
DX: C16.9 Malignant neoplasm of stomach, unspecified (principal)

== ENCOUNTER → 2018-10-05 | Outpatient (REF) | payer MEDICARE ==
[~2018-10-05] MED LIST changes: -ERGO500014 PO; +LISI10TA15 PO; -LISI10TA2 PO; +VITA500045 PO
[2018-10-05 19:59] LABS: HEMATOCRIT 23.4 % (36.0-47.0)
[2018-10-05 20:19] LABS: HEMOGLOBIN 6.9 g/dl (12.0-15.5)
[2018-10-05 20:23] LABS: PERCENT SATURATION 7.1 % (13.2-45.0)
== END ==
LOC: M LABDRWAD 18:51
PROVIDERS: ATTEND Physician Assistant Medical
DX: R53.1 Weakness (principal); R53.83 Other fatigue; Z79.4 Long term (current) use of insulin; Z79.899 Other long term (current) drug therapy

== ENCOUNTER 2018-12-22 11:28 | Observation (INO) | payer MEDICARE ==
[~2018-12-22] VITALS: Ht 172.7 cm; Wt 85.4 kg
[~2018-12-22 11:28] MED LIST changes: +METF-791 PO; -OMEP40CA2 PO; +OMEP40CA97 PO
[2018-12-22] MEDS ORDERED: BUSP5TA PO (11:49)
[2018-12-22] MEDS: HumaLOG INSULIN (NovoLOG) PER UNIT SC SCH ×2 (12:00→17:28)
[2018-12-22 12:11] LABS: BASO % 0.3 % (0.0-1.0); EOS # 0.1 10^3/uL (0.0-0.5); EOS % 1.6 % (0.0-3.0); LYMPH # 0.8 10^3/uL (1.5-5.0); LYMPH % 12.1 % (24.0-44.0); MEAN CORPUSCULAR HEMOGLOBIN 28.3 pg (27.0-33.0); MEAN CORPUSCULAR HGB CONC 30.2 g/dl (32.0-36.5); MEAN CORPUSCULAR VOLUME 93.9 fl (80.0-96.0); MONO # 0.4 10^3/uL (0.0-0.8); MONO % 6.5 % (0.0-5.0); NEUTROPHILS # 4.9 10^3/uL (1.5-8.5); NEUTROPHILS % 78.1 % (36.0-66.0); PLATELET COUNT, AUTOMATED 229 10^3/uL (150-450); RED BLOOD COUNT 2.12 10^6/uL (4.00-5.40); WHITE BLOOD COUNT 6.3 10^3/uL (4.0-10.0)
[2018-12-22 12:13] LABS: HEMATOCRIT 19.9 % (36.0-47.0)
[2018-12-22 12:37] LABS: CALCIUM LEVEL 8.6 MG/DL (8.8-10.2); CREATININE FOR GFR 1.53 MG/DL (0.55-1.30); GLOMERULAR FILTRATION RATE 34.8 (>32); POTASSIUM SERUM 4.1 MEQ/L (3.5-5.1)
[2018-12-22] MEDS ORDERED: GLUCAGON FOR INJ 1 MG VIAL (J1610) SC PRN (13:30)
[2018-12-22] MEDS ORDERED: DEXTROSE 50% 50 ML SYRINGE IV PRN (13:30)
[2018-12-22] MEDS ORDERED: GLUCOSE 4 GM CHEW TABLET PO PRN (13:30)
[2018-12-22] MEDS ORDERED: ROPI0.2534 PO (13:33)
--- NOTE | 2018-12-22 14:01 | HPE ---
DATE OF ADMISSION: 12/22/2018 PRIMARY CARE PROVIDER: [facility] ONCOLOGIST: Nicole Santiago MD REVENUE COLLECTOR: Dr. Collin Ch ATTENDING PHYSICIAN: Hospitalist Group CHIEF COMPLAINT: Anemia with upper gastrointestinal (GI) bleeding. HISTORY: Osiris Austin is an 78-year-old with localized gastric adenocarcinoma diagnosed by esophagogastroduodenoscopy (EGD) 07/02. Unfortunately, the patient has declined surgical treatment and is being followed supportively by Dr. Nicole Santiago. She has recurrent hospitalizations due to GI bleeding and with blood transfusions complicated by antigen status, which requires blood to be obtained from [facility] in [place], [place]. She has been having black tarry stool for several days and presents with a hemoglobin of 6. PAST MEDICAL HISTORY: Shows gastric adenocarcinoma, type 2 diabetes, a history of hypothyroidism, chronic anxiety. She has DO NOT RESUSCITATE (DNR) status with a DO NOT INTUBATE on previous Medical Orders for Life-Sustaining Treatment (MOLST) form from 06/06/2017. Other past history shows atrial fibrillation, hypertension, hyperlipidemia. SURGICAL HISTORY: Hernia repair, bilateral tubal ligation, several upper endoscopies, endoscopic ultrasound in [place] 2016. SOCIAL HISTORY: Quit smoking in 1992, [id number]-bsan. No alcohol. She is . Seven children. FAMILY HISTORY: Sister had breast cancer. Another sister breast cancer. Brother had prostate cancer. REVIEW OF SYSTEMS: She is short of breath and weak. No fever, chills, night sweats, chest pain. ALLERGIES: ASPIRIN and SIMVASTATIN. MEDICATIONS: - BuSpar 5 mg twice a day - Klonopin 0.5 mg twice a day - Lexapro 10 mg daily - levothyroxine 88 mcg daily - Protonix 40 mg twice a day - Requip 0.25 mg daily - Carafate 1 gram before meals and at bedtime - detemir insulin 10 units at bedtime. PHYSICAL EXAMINATION: Vital signs per flow sheet. Alert, conversant, no distress. Slightly pale. HEENT: Unremarkable. Lungs: Clear. Heart: Regular rate and rhythm. 1/6 systolic ejection murmur. Abdomen: Soft, nontender. No masses. Trace peripheral edema. Normal strength in the arms and legs. LABORATORIES: White count 6.6, hemoglobin 6, platelets 229. Sodium 138, potassium 4.1, BUN 21, creatinine 1.53. It looks to be about her baseline. IMPRESSION: 1. Upper gastrointestinal bleed from gastric cancer, for which the patient is undergoing just supportive therapy. PLAN: She will be admitted to a medical bed. Intravenous (IV) Protonix has been ordered. DNR/DNI status will be continued. Serial complete blood counts (CBCs) have been ordered. She has been typed and crossed. Matched blood is coming from [place]. She has an antigen compatibility problems which complicate transfusion. 2. Diabetes. I will hold her detemir insulin while she is nothing by mouth. Sliding scale insulin with coverage ordered. 3. Chronic anxiety with depression. Continue her Klonopin and BuSpar. I would recommend stopping the Lexapro. Selective serotonin reuptake inhibitors (SSRIs) have been implicated with GI bleeding, and the patient has recurrent upper GI bleeding from her gastric ulcer. Non-selective serotonin reuptake inhibitor (SSRI) or serotonin-norepinephrine reuptake inhibitor (SNRI) would be preferable if she requires antidepressant therapy. 4. Restless legs syndrome. Continue Requip 0.25 mg daily.
[2018-12-22] MEDS: KCL 20MEQ in NS 1000ML 1,000 ML IV SCH ×2 (14:08→23:30)
[2018-12-22] MEDS ORDERED: rOPINIRole 0.25 MG TAB(REQUIP) PO PRN (14:15)
[2018-12-22] MEDS ORDERED: clonazePAM 0.5 MG TAB PO PRN (14:15)
[2018-12-22 16:00] VITALS: BP 158/70
[2018-12-22] MEDS: SUCRALFATE 1 GM TAB PO SCH ×2 (17:28→19:48)
[2018-12-22 19:29] LABS: MEAN CORPUSCULAR HEMOGLOBIN 27.9 pg (27.0-33.0); MEAN CORPUSCULAR HGB CONC 29.6 g/dl (32.0-36.5); MEAN CORPUSCULAR VOLUME 94.4 fl (80.0-96.0); PLATELET COUNT, AUTOMATED 232 10^3/uL (150-450); RED BLOOD COUNT 1.97 10^6/uL (4.00-5.40); WHITE BLOOD COUNT 4.7 10^3/uL (4.0-10.0)
[2018-12-22 19:35] LABS: HEMATOCRIT 18.6 % (36.0-47.0); HEMOGLOBIN 5.5 g/dl (12.0-15.5)
[2018-12-22] MEDS: ACETAMINOPHEN TAB 650MG DOSE (2X325MG) PO PRN (19:40)
[2018-12-22] MEDS: busPIRone 5 MG TAB PO SCH (19:48)
[2018-12-22 20:00] VITALS: BP 154/72
[2018-12-22] MEDS ORDERED: rOPINIRole 0.25 MG TAB(REQUIP) PO SCH (21:00)
[2018-12-22 22:45] VITALS: BP 160/72
[2018-12-22 23:00] VITALS: BP 164/71
[2018-12-23] VITALS (12 sets, daily range): BP systolic 140–174; BP diastolic 64–74
[2018-12-23 05:01] LABS: HEMATOCRIT 28.1 % (36.0-47.0); HEMOGLOBIN 9.2 g/dl (12.0-15.5); MEAN CORPUSCULAR HEMOGLOBIN 30.4 pg (27.0-33.0); MEAN CORPUSCULAR HGB CONC 32.7 g/dl (32.0-36.5); MEAN CORPUSCULAR VOLUME 92.7 fl (80.0-96.0); PLATELET COUNT, AUTOMATED 206 10^3/uL (150-450); RED BLOOD COUNT 3.03 10^6/uL (4.00-5.40); WHITE BLOOD COUNT 4.5 10^3/uL (4.0-10.0)
[2018-12-23 05:22] LABS: CALCIUM LEVEL 7.8 MG/DL (8.8-10.2); CREATININE FOR GFR 1.4 MG/DL (0.55-1.30); GLOMERULAR FILTRATION RATE 38.5 (>32); POTASSIUM SERUM 4.1 MEQ/L (3.5-5.1)
[2018-12-23] MEDS ORDERED: LEVOTHYROXINE 88MCG TABLET (0.088 MG) PO SCH (06:00)
[2018-12-23] MEDS: HumaLOG INSULIN (NovoLOG) PER UNIT SC SCH ×3 (06:00→12:12)
[2018-12-23] MEDS: busPIRone 5 MG TAB PO SCH (08:04)
[2018-12-23] MEDS: SUCRALFATE 1 GM TAB PO SCH ×2 (08:04→12:12)
[2018-12-23] MEDS ORDERED: PANTOPRAZOLE 40MG INJ (PROTONIX) (C9113) IV SCH (09:00)
[2018-12-23 10:51] LABS: HEMOGLOBIN 9.7 g/dl (12.0-15.5); MEAN CORPUSCULAR HEMOGLOBIN 29.5 pg (27.0-33.0); MEAN CORPUSCULAR HGB CONC 32.3 g/dl (32.0-36.5); MEAN CORPUSCULAR VOLUME 91.2 fl (80.0-96.0); PLATELET COUNT, AUTOMATED 204 10^3/uL (150-450); RED BLOOD COUNT 3.29 10^6/uL (4.00-5.40)
[2018-12-23] MEDS: ACETAMINOPHEN TAB 650MG DOSE (2X325MG) PO PRN (12:55)
--- NOTE | 2018-12-23 13:29 | DS.PDOC ---
Discharge Summary General Date of Admission Dec 22, 2018 at 11:29 Date of Discharge 12/23/18 Discharge Summary PROCEDURES PERFORMED DURING STAY: [None]. DISCHARGE DIAGNOSES: Upper GIB due to gastric adenocarcinoma Acute blood loss anemia Diabetes Hypertension Hyperlipidemia hypothyroid Chronic anxiety Atrial fibrillation. restless legs. COMPLICATIONS/CHIEF COMPLAINT: Upper Gi Bleeding. HISTORY OF PRESENT ILLNESS: Please see history and physical HOSPITAL COURSE: 78-year-old with localized gastric adenocarcinoma diagnosed by esophagogastroduodenoscopy (EGD) 07/02. Unfortunately, the patient has declined surgical treatment and is being followed supportively by Dr. Nicole Santiago. She has recurrent hospitalizations due to GI bleeding and with requirement of blood transfusions complicated by antigen status, which requires blood to be obtained from [facility] in [place], [place]. She has been having black tarry stool for several days and presents with a hemoglobin of 6. She was admitted for reccrent upper GIB with acute blood loss anemia. Recurrent Upper GIB with acute blood loss anemia Has antigen positive status so receives blood from [place] s/ 3 units of PRBC. HH responded appropriately Gastric adenocarcinoma diagnosed in 2016 refused surgical treatment treated supportively by oncology Dr Santiago Type 2 diabetes Monitor FS Levemir and lispro Hypothyroidism synthroid Chronic anxiety continue Klonopin and BuSpar stopped lexapro as it is an SSRI and known to increase bleeding. If she needs antidepressants should be tried of SNRI or Non SSRI Atrial fibrillation rate controlled not on anticoagulation due to recurrent GIBs. H/O Hypertension now does not require any meds. Hyperlipidemia. home meds GI prophylaxis pantoprazole. DISCHARGE MEDICATIONS: Please see below. ALLERGIES: Please see below. PHYSICAL EXAMINATION ON DISCHARGE: VITAL SIGNS: Please see below. Alert, conversant, no distress. HEENT: Unremarkable. Lungs: Clear. Bilateral vesicular breath sounds Heart: Regular rate and rhythm. 1/6 systolic ejection murmur. No rub or gallop Abdomen: Soft, nontender. No masses. Znormal bowel sounds Trace peripheral edema. Normal strength in the arms and legs. LABORATORY DATA: Please see below. ACTIVITY: [As tolerated]. DIET: As tolerated DISCHARGE PLAN: Home DISPOSITION: . DISCHARGE INSTRUCTIONS: PMD in 1 week Oncology as per schedule DISCHARGE CONDITION: [Stable]. TIME SPENT ON DISCHARGE: 35 minutes. Vital Signs/I&Os Vital Signs Date Time Temp Pulse Resp B/P (MAP) Pulse Ox O2 Delivery O2 Flow Rate FiO2 12/23/18 12:00 98.6 61 18 163/74 (103) 99 Room Air 12/22/18 23:00 98 l I&O- Last 24 Hours up to 6 AM 12/23/18 06:00 Intake Total 3902 ml Output Total 0 ml Balance 3902 ml Laboratory Data Labs 24H Laboratory Tests 2 12/22/18 17:16: Bedside Glucose (Misc Panel) 93 12/22/18 19:08: Nucleated Red Blood Cells % (auto) 0.4H 12/22/18 23:50: Bedside Glucose (Misc Panel) 108 12/23/18 04:28: Nucleated Red Blood Cells % (auto) 0.4H 12/23/18 04:32: Anion Gap 6L, Glomerular Filtration Rate 38.5, Calcium Level 7.8L 12/23/18 06:03: Bedside Glucose (Misc Panel) 105 12/23/18 10:39: Nucleated Red Blood Cells % (auto) 0.8H 12/23/18 11:45: Bedside Glucose (Misc Panel) 158H CBC/BMP Laboratory Tests 12/22/18 19:08 12/23/18 04:28 12/23/18 04:32 12/23/18 10:39 FSBS Laboratory Tests Test 12/22/18 17:16 12/22/18 23:50 12/23/18 06:03 12/23/18 11:45 Range/Units Bedside Glucose (Misc Panel) 93 108 105 158 83-110 MG/DL Discharge Medications Scheduled Buspirone HCl (Buspirone HCl) 5 Mg Tablet, 5 MG PO BID, (Reported) Escitalopram Oxalate (Escitalopram Oxalate) 10 Mg Tab, 10 MG PO DAILY, (Reported) Insulin Detemir (Levemir Flextouch) 100 Unit/Ml Inj, 10 UNITS SC QPM, (Reported) TAKES AT 4PM; TITRATES BASED OFF OF BLOOD SUGAR Levothyroxine Sodium (Levothyroxine Sodium) 88 Mcg Tab, 88 MCG PO DAILY, (Reported) Pantoprazole Sodium (Pantoprazole Sodium) 40 Mg Tab, 40 MG PO BID, (Reported) Ropinirole HCl (Ropinirole HCl) 0.25 Mg Tablet, 0.5 MG PO QHS, (Reported) Sucralfate (Sucralfate) 1 Gm Tab, 1 GM PO ACHS, (Reported) Scheduled PRN Clonazepam (Clonazepam) 0.5 Mg Tab, 0.5 MG PO TID PRN for SEIZURES, (Reported) Ropinirole HCl (Ropinirole HCl) 0.25 Mg Tablet, 0.25 MG PO QHS PRN for RESTLESSNESS, (Reported) Allergies Coded Allergies: aspirin (Verified Allergy, Unknown, 05/18/18) simvastatin (Verified Allergy, Unknown, 05/18/18) KIRILL WOOTEN MD Dec 23, 2018 13:29
== END 2018-12-23 15:12 | disposition home or self-care (01) ==
LOC: M ED 11:28 → M ED INP 11:29 → M PCU 15:42
PROVIDERS: ADMIT Family Medicine; ATTEND Internal Medicine
DX: K92.2 Gastrointestinal hemorrhage, unspecified (principal); C16.9 Malignant neoplasm of stomach, unspecified; D62 Acute posthemorrhagic anemia; E11.9 Type 2 diabetes mellitus without complications; I10 Essential (primary) hypertension; E78.49 Other hyperlipidemia; E03.9 Hypothyroidism, unspecified; F41.9 Anxiety disorder, unspecified; F32.9 Major depressive disorder, single episode, unspecified; I48.91 Unspecified atrial fibrillation; G25.81 Restless legs syndrome; Z79.4 Long term (current) use of insulin; Z79.899 Other long term (current) drug therapy; Z88.8 Allergy status to other drugs, medicaments and biological substances; Z87.891 Personal history of nicotine dependence
CPT/HCPCS: 36415; 36430; 80048; 83540; 85025; 85027; 86850; 86900; 86901; 86920; 96374; 99284; C9113; G0378; P9016

== ENCOUNTER 2019-01-01 09:39 | Inpatient (IN) | payer MEDICARE ==
[~2019-01-01] VITALS: Ht 172.7 cm; Wt 85.9 kg
[2019-01-01] VITALS (10 sets, daily range): BP systolic 84–148; BP diastolic 38–68
[~2019-01-01 09:39] MED LIST changes: +BUSP5TA PO; +ROPI0.2534 PO; +SENOKOT S TAB PO SCH
[2019-01-01] MEDS ORDERED: ESCI10TA2 (09:54)
[2019-01-01 10:23] LABS: BASO % 0.4 % (0.0-1.0); EOS # 0.1 10^3/uL (0.0-0.5); EOS % 1.2 % (0.0-3.0); HEMOGLOBIN 6.4 g/dl (12.0-15.5); LYMPH # 0.6 10^3/uL (1.5-5.0); LYMPH % 11.9 % (24.0-44.0); MEAN CORPUSCULAR HEMOGLOBIN 29.5 pg (27.0-33.0); MEAN CORPUSCULAR HGB CONC 30.9 g/dl (32.0-36.5); MEAN CORPUSCULAR VOLUME 95.4 fl (80.0-96.0); MONO # 0.5 10^3/uL (0.0-0.8); MONO % 9.9 % (0.0-5.0); NEUTROPHILS # 3.8 10^3/uL (1.5-8.5); NEUTROPHILS % 75.8 % (36.0-66.0); PLATELET COUNT, AUTOMATED 216 10^3/uL (150-450); RED BLOOD COUNT 2.17 10^6/uL (4.00-5.40); WHITE BLOOD COUNT 5.1 10^3/uL (4.0-10.0)
[2019-01-01 10:24] LABS: HEMATOCRIT 20.7 % (36.0-47.0)
[2019-01-01] MEDS ORDERED: SENO8.6T5 PO (10:46)
[2019-01-01 10:51] LABS: CALCIUM LEVEL 8.3 MG/DL (8.8-10.2); CREATININE FOR GFR 1.34 MG/DL (0.55-1.30); GLOMERULAR FILTRATION RATE 40.5 (>32); POTASSIUM SERUM 3.7 MEQ/L (3.5-5.1)
[2019-01-01] MEDS ORDERED: MOM 30ML SUSPENSION UDC PO PRN (11:30)
[2019-01-01] MEDS ORDERED: MAALOX 30 ML SUSP *UDC PO PRN (11:30)
[2019-01-01] MEDS ORDERED: ACETAMINOPHEN TAB 650MG DOSE (2X325MG) PO PRN (11:30)
[2019-01-01] MEDS ORDERED: busPIRone 5 MG TAB PO PRN (11:30)
--- NOTE | 2019-01-01 11:35 | HPEPDOC ---
General Date of Admission 01/01/19 Date of Service: Jan 01, 2019 Primary Care Physician: A Chief Complaint The patient is a 78-year-old female admitted with a reason for visit of Weakness, Gi Bleed. Source: Patient Exam Limitations: No limitations Timing/Duration: Other Severity: Moderate (yesterday) Associated Symptoms: Other (, dark stools) History of Present Illness This is a 78 years old white female with a past medical history of gastric carcinoma and received chemotherapy in the past without any success. She is only on observation at the cancer center. Patient also has a history of recurrent anemia requiring multiple transfusions presented to ER with chief complaints of increasing lethargy since last night, unable to get up and do her ADLs and also noticed black tarry stools this morning. Patient denies any chest pain, shortness of breath ,nausea, vomiting or diarrhea Home Medications Scheduled Levothyroxine Sodium (Levothyroxine Sodium) 88 Mcg Tab, 88 MCG PO DAILY, (Reported) Pantoprazole Sodium (Pantoprazole Sodium) 40 Mg Tab, 40 MG PO BID, (Reported) Ropinirole HCl (Ropinirole HCl) 0.25 Mg Tablet, 0.5 MG PO QHS, (Reported) Sucralfate (Sucralfate) 1 Gm Tab, 1 GM PO ACHS, (Reported) Scheduled PRN Buspirone HCl (Buspirone HCl) 5 Mg Tablet, 5 MG PO BID PRN for DEPRESSION, (Reported) PT STATES SHE ONLY TAKES THIS MEDICATION WHEN SHE NEEDS TO AND DOESN'T NOT TAKE IT ON A REGULAR BASIS Clonazepam (Clonazepam) 0.5 Mg Tab, 0.5 MG PO TID PRN for SEIZURES, (Reported) Sennosides (Senokot) 8.6 Mg Tablet, 8.6 MG PO BID PRN for CONSTIPATION, (Reported) Allergies Coded Allergies: aspirin (Verified Allergy, Unknown, 05/18/18) simvastatin (Verified Allergy, Unknown, 05/18/18) Past Medical History Medical History Gastric carcinoma on observation failed chemotherapy, hyperlipidemia, hypothyroidism, anxiety disorder, also has questionable history of diabetes in the previous admission Surgical History Tonsillectomy, tubal ligation, hysteroscopic polypectomy laparoscopy repair of paraesophageal hernia Social History * Smoker: former Smoker Alcohol: Denies Drugs: denies A-FIB/CHADSVASC A-FIB History Current/History of A-Fib/PAF?: No Review of Systems Constitutional: Reports: Malaise, Weakness, Fatigue Eyes: Denies: Pain, Vision change, Conjunctivae inflammation, Eyelid inflammation, Redness, Other ENT: Denies: Head Aches, Ear Pain, Dysphagia, Sinus Congestion, Post Nasal Drip, Sore Throat, Epistaxis, Other Symptoms Skin: Denies: Rash, Lesions, Jaundice, Bruising, Itching, Dry, Breakdown, Nail Changes, Other Pulmonary: Denies: Dyspnea, Cough, Pleuritic Chest Pain, Other Symptoms Cardiovascular: Denies: Chest Pain, Palpitations, Orthopnea, Paroxysmal Noc. Dyspnea, Edema, Lt Headedness, Other Symptoms Gastrointestinal: Reports: Melena Endocrine: Denies: Polydipsia, Polyphagia, Polyuria, Heat Intolerance, Cold Intolerance, Other Endocrine Sx Musculoskeletal: Denies: Neck Pain, Back Pain, Shoulder Pain, Arm Pain, Hand Pain, Leg Pain, Foot Pain, Joint Pain, Muscle Pain, Spasms, Other Symptoms Neurological: Denies: Weakness, Numbness, Incoordination, Change in speech, Confusion, Seizures, Other Symptoms Psych: Denies: Mood Normal, Anxiety, Depression, Memory Issues, Thoughts of Self Harm, Anger, Thoughts of Harming Other, Other Psych Physical Examination General Exam: Positive: Alert, Cooperative Eye Exam: Positive: PERRLA, Conjunctiva & lids normal ENT Exam: Positive: Atraumatic, Mucous membr. moist/pink Neck Exam: Positive: Supple Chest Exam: Positive: Clear to auscultation, Normal air movement Heart Exam: Positive: Rate Normal, Normal S1, Normal S2 Abdomen Exam: Positive: Normal bowel sounds, Soft, Tenderness Extremity Exam: Positive: Normal pulses Skin Exam: Positive: Nl turgor and temperature Neuro Exam: Positive: Strength at 5/5 X4 ext, Sensation Intact Psych Exam: Positive: Anxiety Vital Signs Vital Signs Date Time Temp Pulse Resp B/P (MAP) Pulse Ox O2 Delivery O2 Flow Rate FiO2 01/01/19 11:01 66 18 164/72 (102) 99 Room Air 01/01/19 09:50 97.6 Laboratory Data Labs 24H Laboratory Tests 2 01/01/19 10:11: Immature Granulocyte % (Auto) 0.8, Neutrophils (%) (Auto) 75.8H, Lymphocytes (%) (Auto) 11.9L, Monocytes (%) (Auto) 9.9H, Eosinophils (%) (Auto) 1.2, Basophils (%) (Auto) 0.4, Neutrophils # (Auto) 3.8, Lymphocytes # (Auto) 0.6L, Monocytes # (Auto) 0.5, Eosinophils # (Auto) 0.1, Basophils # (Auto) 0.0, Nucleated Red Blood Cells % (auto) 0.0, Anion Gap 5L, Glomerular Filtration Rate 40.5, Calcium Level 8.3L CBC/BMP Laboratory Tests 01/01/19 10:11 Problems (1) Malignant neoplasm of stomach Status: Acute Problem Text: 78 years old white female with a history of gastric carcinoma, history of GI bleed, status post chemotherapy in the past, now only on observation as per oncology notes and on supportive care admitting with symptomatic anemia. Her hemoglobin is 6.4, hematocrit 20.7. Patient's chemotherapy has failed in the past and she had refused surgery. She is only on supportive treatment and management as per oncology. Admit patient to [facility] floor Transfused 2 units of PRBC today Will continue all other home medications including PPIs I had extensive discussion with patient and her grandson at bedside regarding DNR, DNI comfort care measures and healthcare proxy. As per patient, she gets very anxious. She doesn't want to talk about DNR, DNI and comfort measure and her grandson said he will respectively. Wishes if she was a full code. They all agree with the hence, patient was informed that she will be full code unless she decides to sign the most form for DNR, DNI. She also doesn't have signed healthcare proxy and again it was discussed with patient and her grandson to talk about it but patient declined. In the meantime, will provide supportive measures including blood transfusion as per patient's wishes No consultations will be needed as the current measures can be taken care of by the primary team. Continue all home meds Clear liquid diet Activity as tolerated Physical therapy evaluation before discharge (2) Symptomatic anemia Status: Acute Problem Text: As above (3) Anxiety Status: Chronic Problem Text: Continue home meds (4) Hypothyroidism Status: Chronic Problem Text: Continue home meds Plan / VTE VTE Prophylaxis Ordered?: Yes Plan Plan Addendum 5:02 PM: Patient decided to opt for DNR/DNI, now. I went and confirmed with patient with RN and family at the bedside. DNR/DNI status will be implemented ASHUTOSH MOREL MD Jan 01, 2019 11:35
[2019-01-01] MEDS: PANTOPRAZOLE 40MG TAB (PROTONIX) PO SCH ×2 (12:03→20:10)
[2019-01-01] MEDS: SENOKOT S TAB PO SCH ×2 (12:58→20:10)
[2019-01-01] MEDS: SUCRALFATE 1 GM TAB PO SCH ×3 (12:58→20:10)
[2019-01-01] MEDS: DOCUSATE SODIUM 100 MG CAP PO SCH ×2 (12:58→20:10)
[2019-01-01] MEDS ORDERED: clonazePAM 0.5 MG TAB PO PRN (16:00)
[2019-01-01] MEDS: ALPRAZolam 0.25 MG TAB PO PRN (17:07)
[2019-01-01 20:51] LABS: HEMATOCRIT 18.9 % (36.0-47.0); HEMOGLOBIN 5.7 g/dl (12.0-15.5)
[2019-01-01] MEDS ORDERED: rOPINIRole 0.25 MG TAB(REQUIP) PO SCH (21:00)
[2019-01-02 00:38] VITALS: BP 137/62
[2019-01-02 01:34] VITALS: BP 163/61
[2019-01-02 02:40] VITALS: BP 130/56
[2019-01-02 02:48] LABS: HEMOGLOBIN 8.6 g/dl (12.0-15.5)
[2019-01-02 06:00] VITALS: BP 146/73
[2019-01-02] MEDS ORDERED: LEVOTHYROXINE 88MCG TABLET (0.088 MG) PO SCH (06:00)
[2019-01-02 07:02] LABS: HEMATOCRIT 29.1 % (36.0-47.0); HEMOGLOBIN 9.2 g/dl (12.0-15.5); MEAN CORPUSCULAR HEMOGLOBIN 29.2 pg (27.0-33.0); MEAN CORPUSCULAR HGB CONC 31.6 g/dl (32.0-36.5); MEAN CORPUSCULAR VOLUME 92.4 fl (80.0-96.0); PLATELET COUNT, AUTOMATED 200 10^3/uL (150-450); RED BLOOD COUNT 3.15 10^6/uL (4.00-5.40); WHITE BLOOD COUNT 4.6 10^3/uL (4.0-10.0)
[2019-01-02 07:20] LABS: CALCIUM LEVEL 7.8 MG/DL (8.8-10.2); CREATININE FOR GFR 1.31 MG/DL (0.55-1.30); GLOMERULAR FILTRATION RATE 41.6 (>32); POTASSIUM SERUM 3.7 MEQ/L (3.5-5.1)
[2019-01-02] MEDS: DOCUSATE SODIUM 100 MG CAP PO SCH (07:49)
[2019-01-02] MEDS: SUCRALFATE 1 GM TAB PO SCH (07:49)
[2019-01-02] MEDS: ALPRAZolam 0.25 MG TAB PO PRN (07:50)
[2019-01-02] MEDS: PANTOPRAZOLE 40MG TAB (PROTONIX) PO SCH (07:50)
[2019-01-02] MEDS: SENOKOT S TAB PO SCH (07:50)
--- NOTE | 2019-01-02 10:11 | DS.PDOC ---
Discharge Summary General Date of Admission Jan 01, 2019 at 11:19 Date of Discharge 01/02/19 Discharge Summary PROCEDURES PERFORMED DURING STAY: None. ADMITTING DIAGNOSES: 1. Acute blood loss anemia, gastric carcinoma. DISCHARGE DIAGNOSES: 1. Acute blood loss anemia, gastric carcinoma. COMPLICATIONS/CHIEF COMPLAINT: Malignant Neoplasm Of Stomach. HISTORY OF PRESENT ILLNESS: This is a 78 years old white female with a past medical history of gastric carcinoma and received chemotherapy in the past wi thout any success. She is only on observation at the cancer center. Patient also has a history of recurrent anemia requiring multiple transfusions presented to ER with chief complaints of increasing lethargy since last night, unable to get up and do her ADLs and also noticed black tarry stools this morning. Patient denies any chest pain, shortness of breath ,nausea, vomiting or diarrhea. HOSPITAL COURSE: Patient was admitted with a possible GI bleed and chronic blood loss causing anemia. On presentation, patient's hemoglobin was 6.4. She received 2 units of PRBC with a hemoglobin of 9.2 today. Patient is clinically stable, has refused surgery in the past and is not a candidate for chemotherapy as per notes from a oncology. Patient wants to go home. She'll be discharged home and follow with Dr. Herrera in a.m. the care as charted patient home on all current meds . DISCHARGE MEDICATIONS: Please see below. ALLERGIES: Please see below. PHYSICAL EXAMINATION ON DISCHARGE: VITAL SIGNS: Please see below. GENERAL: Within normal limits HEENT: PERRLA, extra ocular muscles intact NECK: Supple. Negative JVD, negative lymphadenopathy CARDIOVASCULAR EXAMINATION: S1, S2, regular RESPIRATORY EXAMINATION: Clear to A&P ABDOMINAL EXAMINATION: Benign EXTREMITIES: . No clubbing, edema SKIN: The normal limit NEUROLOGICAL EXAMINATION: . No focal motor sensory deficit PSYCHIATRIC EXAMINATION: Normal LABORATORY DATA: Please see below. IMAGING: None PROGNOSIS: Poor ACTIVITY: As tolerated. DIET: As tolerated DISCHARGE PLAN: Follow-up with Dr. Herrera in a.m. DISPOSITION: . Home with family DISCHARGE INSTRUCTIONS: 1. As per discharge instructions. ITEMS TO FOLLOWUP ON ON OUTPATIENT: 1. f/u With Dr. Herrera in a.m.. DISCHARGE CONDITION: Stable. TIME SPENT ON DISCHARGE: 38 minutes. Vital Signs/I&Os Vital Signs Date Time Temp Pulse Resp B/P (MAP) Pulse Ox O2 Delivery O2 Flow Rate FiO2 01/02/19 06:00 98.1 59 18 146/73 (97) 99 Room Air I&O- Last 24 Hours up to 6 AM 01/02/19 05:59 Intake Total 2860 ml Output Total 0 ml Balance 2860 ml Laboratory Data Labs 24H Laboratory Tests 2 01/01/19 10:11: Immature Granulocyte % (Auto) 0.8, Neutrophils (%) (Auto) 75.8H, Lymphocytes (%) (Auto) 11.9L, Monocytes (%) (Auto) 9.9H, Eosinophils (%) (Auto) 1.2, Basophils (%) (Auto) 0.4, Neutrophils # (Auto) 3.8, Lymphocytes # (Auto) 0.6L, Monocytes # (Auto) 0.5, Eosinophils # (Auto) 0.1, Basophils # (Auto) 0.0, Nucleated Red Blood Cells % (auto) 0.0, Anion Gap 5L, Glomerular Filtration Rate 40.5, Calcium Level 8.3L 01/02/19 06:27: Nucleated Red Blood Cells % (auto) 0.0, Anion Gap 4L, Glomerular Filtration Rate 41.6, Calcium Level 7.8L CBC/BMP Laboratory Tests 01/01/19 10:11 01/01/19 20:07 01/02/19 02:43 01/02/19 06:27 Discharge Medications Scheduled Levothyroxine Sodium (Levothyroxine Sodium) 88 Mcg Tab, 88 MCG PO DAILY, (Reported) Pantoprazole Sodium (Pantoprazole Sodium) 40 Mg Tab, 40 MG PO BID, (Reported) Ropinirole HCl (Ropinirole HCl) 0.25 Mg Tablet, 0.5 MG PO QHS, (Reported) Sucralfate (Sucralfate) 1 Gm Tab, 1 GM PO ACHS, (Reported) Scheduled PRN Buspirone HCl (Buspirone HCl) 5 Mg Tablet, 5 MG PO BID PRN for DEPRESSION, (Reported) PT STATES SHE ONLY TAKES THIS MEDICATION WHEN SHE NEEDS TO AND DOESN'T NOT TAKE IT ON A REGULAR BASIS Clonazepam (Clonazepam) 0.5 Mg Tab, 0.5 MG PO TID PRN for SEIZURES, (Reported) Sennosides (Senokot) 8.6 Mg Tablet, 8.6 MG PO BID PRN for CONSTIPATION, (Reported) Allergies Coded Allergies: aspirin (Verified Allergy, Unknown, 05/18/18) simvastatin (Verified Allergy, Unknown, 05/18/18) ASHUTOSH MOREL MD Jan 02, 2019 10:11
== END 2019-01-02 12:45 | disposition home or self-care (01) | DRG 812 ==
LOC: M ED 09:39 → EDBD 09:39 → M ED INP 11:19 → M MS5PR 14:50
PROVIDERS: ADMIT Internal Medicine; ATTEND Internal Medicine
PROC: 30233N1 Transfusion of Nonautologous Red Blood Cells into Peripheral Vein, Percutaneous Approach (ICD-10-PCS; principal; 2019-01-01)
DX: D62 Acute posthemorrhagic anemia (principal); C16.9 Malignant neoplasm of stomach, unspecified; Z92.21 Personal history of antineoplastic chemotherapy; Z79.899 Other long term (current) drug therapy; Z88.6 Allergy status to analgesic agent; Z88.8 Allergy status to other drugs, medicaments and biological substances; E78.5 Hyperlipidemia, unspecified; E03.9 Hypothyroidism, unspecified; F41.9 Anxiety disorder, unspecified; Z66 Do not resuscitate